=== PATIENT | female | born 1955 | race Caucasian/White ===

== ENCOUNTER 2017-12-23 14:12 | Inpatient (IN) | payer BC ==
[2017-12-23 16:25] LABS: Hematocrit 34 % (35-47); Hemoglobin 11.2 g/dl (12.0-16.0); Mean Corpuscular HGB Conc 33 g/dl (31-36); Mean Corpuscular Hemoglobin 29 pg (27-31); Mean Corpuscular Volume 87 fL (80-97); Platelet Count 573 10^3/ul (150-450); Red Cell Distribution Width 15 % (10.5-15); White Blood Count 12.7 10^3/ul (3.5-10.8)
[2017-12-23 16:42] LABS: EGFR Non-African American 77.8 (>60)
[2017-12-23] MEDS ORDERED: Ondansetron INJ* 2 MG/ML VIAL IV ONE (16:49)
[2017-12-23] MEDS ORDERED: Morphine INJ* 2 MG/ML 1 ML CARPUJECT IV ONE (16:49)
[2017-12-23] MEDS ORDERED: NS 0.9% 1000 ML* 1,000 ML IV ONE (16:50)
[2017-12-23] MEDS ORDERED: Ondansetron ODT TAB* 4 MG ONE (16:53)
[2017-12-23] MEDS ORDERED: Morphine VIAL* 4 MG/ML VIAL (1 ml vial) IV ONE ×2 (16:53→16:56)
[2017-12-23] MEDS ORDERED: Ondansetron ODT TAB* 4 MG PO ONE (16:56)
[2017-12-23] MEDS ORDERED: NS 0.9% 1000 ML* 1,000 ML IV SCH (17:00)
[2017-12-23] MEDS ORDERED: methylPREDNISolone SOD 40 MG* 1 ML VIAL IV ONE (17:01)
--- NOTE | 2017-12-23 17:28 | ED ---
Juany Salazar Simon, scribed for Mone Foley MD on 12/23/17 at 1718 . Abdominal Pain/Female - HPI Summary HPI Summary: This patient is a 62 year old F presenting to [facility] accompanied by with PMH ulceratvie colitis. Pt reports a chief complaint of Left sided abdominal pain starting in July 2017, but now worse, at 10/10 severity as of 3 weeks ago and continuing to worsen. Pt endorses insomnia due to frequent BMs - hourly and blood, and diarrhea. Pt denies fever, chills, and emesis. Pt states approx 6 weeks ago wa started on prednisone which she took as a taper. Pt states then started Humira and was nearly through the initial 6 doses when she developed increased abd pain and lethargy, so she stopped taking it. Pt states her GI specialist (currently through [facility]) as well as her PCP want to start her on Remicade - her insurance will not cover so three is a plan for another agent. Pt states her primary care provider wanted to have the pt admissted at [facility] but pt did not want to travel that far. Instead, pt was directed to [facility] ED - pt is aware there is no GI specialist on today. Pt states she was sent to the ED to get hydrated and steroids. and start on immunosuppressant. She claims I can t do this anymore, and when asked what symptoms are bothering her she said it s everything. She last took nausea medication and imodium last night. No analgesia taken today. She described her last BM as blood and brown 1 hour ago , and endorses having 1 every hour, She endorses last being on steroids 1 month ago. Pt denies fevers or chills. Pt states her last sigmoidoscopy was in September and consistent with UC. Pt has not had bowel surgery. Pt's medications reviewed this visit. - History of Current Complaint Chief Complaint: EDAbdPain Stated Complaint: ABD PAIN-SENT FROM [facility] Time Seen by Provider: 12/23/17 15:57 Hx Obtained From: Patient Onset/Duration: Lasting Weeks, Still Present Timing: Constant Severity Initially: Moderate Severity Currently: Severe Pain Intensity: 10 Pain Scale Used: 0-10 Numeric Location: Discrete At: LLQ Alleviating Factor(s): Medications - imodium, anti-nausea meds Associated Signs and Symptoms: Positive: Blood in Stool, Nausea, Diarrhea. Negative: Vomiting Allergies/Adverse Reactions: Allergies Allergy/AdvReac Type Severity Reaction Status Date / Time No Known Allergies Allergy Verified 12/23/17 14:27 Home Medications: Home Medications Adalimumab (NF) [Humira Pen (NF)] 40 mg SUBCUT .EVERY TWO WEEKS 12/23/17 [ History Confirmed 12/23/17] Amitriptyline TAB* [Elavil TAB*] 100 mg PO BEDTIME 12/23/17 [History Confirmed 12/23/17] Ammonium Lactate [Amlactin] 12 % EX BID 12/23/17 [History Confirmed 12/23/17] Ascorbic Acid TAB* [Vitamin C TAB*] 1,000 mg PO DAILY 12/23/17 [History Confirmed 12/23/17] Atorvastatin* [Lipitor*] 20 mg PO DAILY 12/23/17 [History Confirmed 12/23/17] Biotin 1,000 mcg PO DAILY 12/23/17 [History Confirmed 12/23/17] Calcium Carbonate TAB* 600 mg PO DAILY 12/23/17 [History Confirmed 12/23/17] Ciclopirox [Ciclopirox Nail Lacquer] 8 % EX DAILY 12/23/17 [History Confirmed ] Efinaconazole [Jublia] 10 % EX DAILY 12/23/17 [History Confirmed 12/23/17] Ferrous Gluconate TAB* [Fergon TAB*] 325 mg PO DAILY 12/23/17 [History Confirmed 12/23/17] Gabapentin CAP(*) [Neurontin 300 CAP(*)] 300 mg PO BEDTIME 12/23/17 [History Confirmed 12/23/17] Glimepiride (NF) 2 mg PO BID 12/23/17 [History Confirmed 12/23/17] Hydrocortisone 2.5% CREAM(NF) 1 applic TOPICAL BID 12/23/17 [History Confirmed 12/23/17] Levothyroxine TAB* [Synthroid TAB*] 75 mcg PO DAILY 12/23/17 [History Confirmed 12/23/17] Mesalamine DR CAP* [Mesalamine DR CAP* (formerly ASACOL TAB)*] 1.2 gm PO QID [History Confirmed 12/23/17] Multivitamins/Minerals TAB* [Theragran/minerals TAB*] 1 tab PO DAILY 12/23/17 [ History Confirmed 12/23/17] Nortriptyline CAP* [Pamelor CAP*] 50 mg PO BEDTIME 12/23/17 [History Confirmed 12/23/17] [place]-3 Fatty Acids (Nf) [Fish Oil (NF)] 1,000 mg PO DAILY 12/23/17 [History Confirmed 12/23/17] Omeprazole CAP* [Prilosec CAP* 20 MG] 20 mg PO DAILY 12/23/17 [History Confirmed 12/23/17] Ondansetron TAB* [Zofran 4 MG Tab*] 4 mg PO Q8H PRN 12/23/17 [History Confirmed 12/23/17] Pregabalin CAP(*) [Lyrica CAP(*)] 200 mg PO BID MDD 2 capsules 12/23/17 [ History Confirmed 12/23/17] RiFAXimin* [Xifaxan*] 550 mg PO BID 12/23/17 [History Confirmed 12/23/17] Saccharomyces Boulardii [Probiotic] 500 mg PO DAILY 12/23/17 [History Confirmed 12/23/17] Triamcinolone 0.1% CREAM(NF) [Kenalog 0.1% Cream (NF)] 1 applic TOPICAL BID [History Confirmed 12/23/17] Vitamin E CAP* 400 unit PO DAILY 12/23/17 [History Confirmed 12/23/17] Zinc 50 mg PO DAILY 12/23/17 [History Confirmed 12/23/17] Zolpidem TAB* [Ambien TAB*] 10 mg PO BEDTIME PRN MDD 10mg 12/23/17 [History Confirmed 12/23/17] PMH/Surg Hx/FS Hx/Imm Hx Previously Healthy: Yes Endocrine/Hematology History: Denies: Hx Diabetes Cardiovascular History: Denies: Hx Hypertension, Hx Pacemaker/ICD GI History: Reports: Other GI Disorders - ulcerative colitis History: Denies: Hx Renal Disease Sensory History: Denies: Hx Legally Blind, Hx Deafness, Hx Hearing Aid Opthamlomology History: Denies: Hx Legally Blind EENT History: Denies: Hx Deafness Psychiatric History: Denies: Hx Panic Disorder - Cancer History Hx Chemotherapy: No Hx Radiation Therapy: No - Surgical History Surgery Procedure, Year, and Place: CHOLECYSTECTOMY 2006 Infectious Disease History: No Infectious Disease History: Denies: Traveled Outside the [place] in Last 30 Days - Family History Known Family History: Positive: Cardiac Disease - Social History Occupation: Unemployed Lives: With Family Alcohol Use: Rare Substance Use Type: Reports: None Smoking Status (MU): Never Smoked Tobacco Review of Systems Positive: Fatigue, Other - insomnia. Negative: Fever, Chills Positive: Abdominal Pain - LLQ, Diarrhea, Nausea, Other - Hematochezia. Negative: Vomiting All Other Systems Reviewed And Are Negative: Yes Physical Exam - Summary Physical Exam Summary: Vital Signs Reviewed: Yes A+Ox3, mild discomfort Eyes: Conjunctiva Clear, JOSE DE JESUS. EOM intact and full ENT: Hearing grossly normal TM x 2 clear, mmoist, uvula midline, no exudate, no erythema Neck: Positive: Supple Respiratory: Positive: No respiratory distress, No accessory muscle use + CTA throughout no w/r Cardiovascular: RRR nl s1, s2 no m/r CBT <2 abd soft + BS + TTP left upper and lower abdomen no guarding, no rebound soft Musculoskeletal Exam: SHAH x 4 without difficulty Strength Intact, ROM Intact Neurological: Positive: Alert, + sensation throughout Psychological: Positive: Normal Response To Family Skin: Positive: no rash, no ecchymosis Triage Information Reviewed: Yes Vital Signs On Initial Exam: Initial Vitals Temp Pulse Resp BP Pulse Ox 98 F 92 17 147/84 98 12/23/17 14:23 12/23/17 14:23 12/23/17 14:23 12/23/17 14:23 12/23/17 14:23 Vital Signs Reviewed: Yes Diagnostics - Vital Signs Vital Signs Temp Pulse Resp BP Pulse Ox 12/23/17 16:01 103 171/110 99 12/23/17 16:00 93 79 12/23/17 14:23 98 F 92 17 147/84 98 - Laboratory Lab Results: Lab Results 12/23/17 12/23/17 Range/Units 16:17 16:17 WBC 12.7 H (3.5-10.8) 10^3/ul RBC 3.90 L (4.00-5.40) 10^6/ul Hgb 11.2 L (12.0-16.0) g/dl Hct 34 L (35-47) % MCV 87 (80-97) fL MCH 29 (27-31) pg MCHC 33 (31-36) g/dl RDW 15 (10.5-15) % Plt Count 573 H (150-450) 10^3/ul MPV 7.0 L (7.4-10.4) um3 Neut % (Auto) Pending Lymph % (Auto) Pending [place] % (Auto) Pending Eos % (Auto) Pending Baso % (Auto) Pending Absolute Neuts (auto) Pending Absolute Lymphs (auto) Pending Absolute Monos (auto) Pending Absolute Eos (auto) Pending Absolute Basos (auto) Pending Absolute Nucleated RBC Pending Nucleated RBC % Pending ESR Pending Sodium 129 L (135-145) mmol/L Potassium 3.5 (3.5-5.0) mmol/L Chloride 93 L (101-111) mmol/L Carbon Dioxide 27 (22-32) mmol/L Anion Gap 9 (2-11) mmol/L BUN 7 (6-24) mg/dL Creatinine 0.75 (0.51-0.95) mg/dL Est GFR ( Amer) 94.1 (>60) Est GFR (Non-Af Amer) 77.8 (>60) BUN/Creatinine Ratio 9.3 (8-20) Glucose 170 H (70-100) mg/dL Calcium 8.5 L (8.6-10.3) mg/dL Magnesium 1.7 L (1.9-2.7) mg/dL Total Bilirubin 0.40 (0.2-1.0) mg/dL AST 13 (13-39) U/L ALT 11 (7-52) U/L Alkaline Phosphatase 100 (34-104) U/L C-Reactive Protein 27.69 H (<8.01) mg/L Total Protein 7.0 (6.4-8.9) g/dL Albumin 2.9 L (3.2-5.2) g/dL Globulin 4.1 H (2-4) g/dL Albumin/Globulin Ratio 0.7 L (1-3) Lipase < 10 L (11.0-82.0) U/L Result Diagrams: 12/23/17 16:17 12/23/17 16:17 Lab Statement: Any lab studies that have been ordered have been reviewed, and results considered in the medical decision making process. Abdominal Pain Fem Course/Dx - Course Course Of Treatment: Patient with a history of ulcerative colitis. Patient is previously seen by [facility]. Patient states her primary care energyless she was currently followed by [facility]. Patient states the last 4-6 week she's had progressive active flare of her typical colitis. Patient states her prednisone taper and then got several doses of Humira. Patient states she did not tolerate that well and so the plan is for her to get started on Remicade or something similar. Patient states pain has become progressive and she feels weak and fatigued and she is not basically to bowel movements. Patient was advised by her primary doctor to go to our with GI could care for her. Patient states she did not want to travel that far so she came here. Patient with GI services on this evening. After discussion with patient and the hospitalist, we'll admit to the medicine service for IV fluids and Solu-Medrol. Hopefully GI will be able to consult on the patient tomorrow. Patient advised that other infusions may not be initiated a hospital but if, GI agrees, perhaps she could be set up with outpatient infusion center. Patient understand this is not a guarantee however are appreciative of plan to admit for IV fluids and steroids. Patient will be given antiemetic as well as in the analgesia while here in the emergency department. Patient's vital signs are stable and her exam is not consistent with acute abdomen so will hold on imaging at this time. - Diagnoses Provider Diagnoses: Ulcerative colitis, Abdominal pain, Hyponatremia - Provider Notifications Discussed Care Of Patient With: Luann Preston - Solumedrol every 8 hours Time Discussed With Above Provider: 17:00 Instructed by Provider To: Admit As Observation Discharge - Sign-Out/Discharge Documenting (check all that apply): Discharge/Admit/Transfer - Discharge Plan Condition: Stable Disposition: ADMITTED TO [facility] Referrals: Shital Harper MD [Primary Care Provider] - - Billing Disposition and Condition Condition: STABLE Disposition: Admitted to [facility] The documentation as recorded by the Juany buck Simon accurately reflects the service I personally performed and the decisions made by me, Mone Foley MD.
[2017-12-23 17:40] LABS: Urine Appearance Clear; Urine Blood Negative (Negative); Urine Color Yellow; Urine Ketones 1+ (Negative); Urine Protein Negative (Negative); Urine Specific Gravity 1.008 (1.010-1.030); Urine Urobilinogen Negative (Negative)
[2017-12-23] MEDS ORDERED: Ondansetron INJ* 2 MG/ML VIAL IV PRN (18:00)
[2017-12-23] MEDS ORDERED: Al Hydrox/Mg Hydrox/Simet LIQ* 30 ML UDC PO PRN (18:00)
[2017-12-23 18:12] LABS: ABS Basophils 0.2 10^3/ul (0-0.2); ABS Eosinophils 1.6 10^3/ul (0-0.6); ABS Lymphocytes 2.6 10^3/ul (1.0-4.8); ABS Monocytes 1.6 10^3/ul (0-0.8); ABS Neutrophils 6.8 10^3/ul (1.5-7.7); ABS Nucleated RBC 0 10^3/ul; Eosinophil % 12.4 % (0-6); Lymphocyte % 20.2 % (25-47); Nucleated Red Blood Cells % 0
[2017-12-23] MEDS: NS 0.9% 1000 ML* 1,000 ML IV SCH (21:21)
[2017-12-23] MEDS: methylPREDNISolone SOD 40 MG* 1 ML VIAL IV SCH (21:27)
[2017-12-23] MEDS: Morphine VIAL* 4 MG/ML VIAL (1 ml vial) IV PRN (21:27)
[2017-12-23] MEDS: Amitriptyline TAB* 100 MG PO SCH (21:33)
[2017-12-23] MEDS: Pregabalin CAP(*) 100 MG PO SCH (21:33)
[2017-12-23] MEDS: RiFAXimin* 550 MG TAB PO SCH (21:33)
[2017-12-23] MEDS: Gabapentin CAP(*) 300 MG PO SCH (21:33)
[2017-12-23] MEDS: Nortriptyline CAP* 25 MG PO SCH (21:34)
[2017-12-23] MEDS: Hydrocortisone 1% CREAM* 30 GM TUBE TOPICAL SCH (21:34)
[2017-12-23] MEDS: Heparin VIAL(*) 5000 UNITS/ML VIAL (FIVE THOUSAND) SUBCUT SCH (21:59)
--- NOTE | 2017-12-24 00:20 | HP ---
ADMISSION HISTORY AND PHYSICAL: DATE OF ADMISSION: 12/23/17 PATIENT OF: Luann Preston DO * (DICTATED BY RAYMUNDO ECHEVARRIA) PRIMARY CARE PHYSICIAN: [facility]. CHIEF COMPLAINT: Left lower quadrant abdominal pain and diarrhea. HISTORY OF PRESENT ILLNESS: Mrs. Ramirez is a 62-year-old female who has past medical history significant for ulcerative colitis that was diagnosed approximately 15 years ago, for which she has had flare-ups on and off since last July. The patient presented to the emergency room, accompanied by her , reports a chief complaint of left-sided abdominal pain that has been going on and off since July of 2017, but has gotten progressively worse over the past few days, rated it as 10/10 in severity for the past 3 weeks or so and it continued to worsen. She notes associated diarrhea and occasional bloody stools and passing mucus as well consistent with her prior symptoms of ulcerative colitis. The patient has been on mesalamine treatment as well as Humira injection and has been seen by a GI doctor at [facility] for the past year or so. She has been previously a patient of Dr. Nazario and after he left [facility], she was forced to go to a GI doctor at [facility]; however, she has not been very happy and satisfied with her care there and would like to return to [facility] for her GI consultations and needs given her chronic issues with ulcerative colitis. The patient notes that she started Humira for the past 3 months or so, took about 6 doses on biweekly basis; however, she continued to develop increased abdominal pain, frequent diarrhea rated it as 1 loose bowel movement around hour and she was told by her primary care physician that he wanted her to start on Remicade. The patient notes that she had some insurance issues to cover Remicade as well as Humira, for which she decided to leave [facility] and return to [facility] for evaluation. The patient states that she was sent to the emergency room for IV fluid hydration as well as steroid and she was quite upset upon presentation stating that she cannot tolerate her chronic disease anymore and would like to do something different to make her feel better. She reports associated nausea, but denies any vomiting. She took some Imodium last night with very minimal relief. She described her bowel movement as being bloody and brown, again 1 bowel movement every hour and last time she tried steroid medication was about a month ago. She had multiple colonoscopies, most recently in September she had a flex sigmoidoscopy that revealed findings consistent with ulcerative colitis. She has never had any bowel surgeries related to her inflammatory bowel disease. At the time of admission, she appears to be more comfortable and cooperative during the history taking and examination. She continued to have some mild abdominal pain now after she took morphine and she feels better after 2 L of IV fluid hydration during her ED stay. We were asked to see the patient for evaluation and to consider admission for IV fluid hydration, pain control and to obtain GI consultation in the morning regarding her longstanding issues with ulcerative colitis. PAST MEDICAL HISTORY: Significant for ulcerative colitis that was diagnosed approximately 15 years ago. She also has history of hyperlipidemia, glucose intolerance, hypothyroidism and anxiety and depression. PAST SURGICAL HISTORY: She had cholecystectomy back in 2006. CURRENT MEDICATIONS: She has multiple medications at home includin. Humira 40 mg subcutaneously every 2 weeks. 2. Amitriptyline 100 mg p.o. q.h.s. 3. AmLactin lotion apply to dry skin. 4. Vitamin C 1000 mg p.o. daily. 5. Lipitor 20 mg p.o. daily. 6. Biotin 1000 mcg p.o. daily. 7. Jublia solution use as prescribed. 8. Glimepiride 2 mg p.o. b.i.d. 9. Neurontin 300 mg p.o. q.h.s. 10. Ferrous gluconate 325 mg p.o. daily. 11. Levothyroxine 75 mcg p.o. daily. 12. Mesalamine 1.2 g p.o. q.i.d. 13. Multivitamin with mineral 1 tablet p.o. daily. 14. Nortriptyline 50 mg p.o. q.h.s. 15. [place] fatty acid supplement 1000 mg p.o. daily. 16. Prilosec 20 mg p.o. daily. 17. Zofran 4 mg p.o. q.8 hours p.r.n. for nausea. 18. Lyrica 200 mg p.o. b.i.d. 19. Xifaxan 550 mg p.o. b.i.d. 20. Probiotic supplement 500 mg p.o. daily. 21. Ambien 10 mg p.o. q.h.s. as needed for insomnia. ALLERGIES: She has no known drug allergies. FAMILY HISTORY: Reports family history for cardiac disease, but denies any family history of inflammatory bowel disease or colorectal malignancies. SOCIAL HISTORY: The patient is retired. She lives with her , who is the healthcare proxy carrier. She is a nonsmoker, who rarely consumes alcohol, and caffeine intake is minimal. REVIEW OF SYSTEMS: See HPI. Otherwise, 14 points review of systems was reviewed and essentially negative. PHYSICAL EXAMINATION GENERAL: She is a pleasant, upper middle-aged female, appears comfortable and in no acute distress or discomfort at the time of admission. VITAL SIGNS: Revealed blood pressure of 173/83, pulse of 88, temperature of 98 degrees, respirations of 15 and O2 sats of 93% on room air. HEENT: Head is normocephalic, atraumatic. Sclerae anicteric. PERRLA. EOMs intact. Oropharynx is dry. NECK: Supple. Trachea midline. No cervical adenopathy or thyromegaly. LUNGS: Clear to auscultation bilaterally. HEART: Regular rate and rhythm. Normal S1 and S2 without rubs, murmurs or gallops. BACK: With normal curvature. No CVA tenderness. BREASTS: Exam deferred at this time. ABDOMEN: Soft and nondistended. There is moderate left lower quadrant tenderness on palpation with some guarding, but no rigidity, rebound tenderness or tympany. There are no hernias, masses or hepatosplenomegaly. EXTREMITIES: Without cyanosis, clubbing or edema. NEUROLOGIC: Grossly intact. RECTAL: Exam deferred at this time. LABORATORY WORKUP: CBC with white count of 12,700, hemoglobin 11.2, hematocrit of 34 and platelets of 573. ESR elevated with value of 72. Chemical panel with sodium of 129, potassium 3.5, chloride 93, BUN of 7, creatinine 0.75, glucose 170, magnesium of 1.7. LFTs essentially within normal limits. Albumin 2.9 and CRP 27. Urinalysis essentially normal. IMPRESSION: A 62-year-old female with history of longstanding ulcerative colitis, who presented to the emergency room with worsening abdominal pain, dehydration and flare-ups of her inflammatory bowel disease, who will be admitted for IV hydration, steroid use as well as obtaining a GI consult for further recommendation regarding her ulcerative colitis management. ASSESSMENT AND PLAN: 1. Flare-ups of ulcerative colitis. The patient will be on clear liquid diet for the time being. We will give her frequent boluses of IV fluid. She had received 2 L of normal saline in the ED and I will give her another liter and then maintain her at 125 mL per hour from now on and encourage p.o. intake. She appears to be hemodynamically stable. Her abdominal pain seems to be better controlled now using morphine as needed. We will continue covering her with Zofran as needed for nausea. We will also initiate steroid using Solu- Medrol 40 mg q.8 hours. This regimen has been started already in the ED. We will hold off her Humira injection for now awaiting GI consultation for possible discussion about Remicade treatment if deemed necessary versus other management. We will also continue her salicylate orally and her other medication from home. 2. Hypertension. The patient is hypertensive upon admission, likely related to stress reaction as well as her abdominal pain. 3. Hyperlipidemia. We will continue her Lipitor. 4. Hypothyroidism. We will continue her Synthroid as prescribed. 5. DVT prophylaxis. The patient is a high risk and will be covered with subcu heparin. 6. Code status. She is a full code and her is healthcare proxy. 7. Disposition. Admission to medical floor for IV hydration and IV Solu-Medrol , awaiting GI consultation for ulcerative colitis. TIME SPENT: Approximately 60 minutes spent admitting this patient with more than 50% spent [id number] on history taking and performing physical exam. I have discussed the case with my attending, Dr. Preston, who agreed to plans, and we will follow her up accordingly. RAYMUNDO ECHEVARRIA [id number]/[facility] #: [id number] MELLISA
[2017-12-24] MEDS: methylPREDNISolone SOD 40 MG* 1 ML VIAL IV SCH ×3 (02:42→17:56)
[2017-12-24] MEDS: Heparin VIAL(*) 5000 UNITS/ML VIAL (FIVE THOUSAND) SUBCUT SCH ×2 (05:56→12:13)
[2017-12-24] MEDS: Levothyroxine TAB* 75 MCG TAB PO SCH (05:56)
[2017-12-24] MEDS: NS 0.9% 1000 ML* 1,000 ML IV SCH ×2 (06:00→15:17)
[2017-12-24 07:02] LABS: ABS Basophils 0 10^3/ul (0-0.2); ABS Eosinophils 0 10^3/ul (0-0.6); ABS Lymphocytes 1.3 10^3/ul (1.0-4.8); ABS Monocytes 0.4 10^3/ul (0-0.8); ABS Neutrophils 7.6 10^3/ul (1.5-7.7); ABS Nucleated RBC 0 10^3/ul; Eosinophil % 0 % (0-6); Hematocrit 31 % (35-47); Hemoglobin 10.2 g/dl (12.0-16.0); Lymphocyte % 13.7 % (25-47); Mean Corpuscular HGB Conc 34 g/dl (31-36); Mean Corpuscular Hemoglobin 29 pg (27-31); Mean Corpuscular Volume 87 fL (80-97); Mean Platelet Volume 7.2 um3 (7.4-10.4); Nucleated Red Blood Cells % 0; Platelet Count 488 10^3/ul (150-450); Red Blood Count 3.49 10^6/ul (4.00-5.40); Red Cell Distribution Width 15 % (10.5-15); White Blood Count 9.3 10^3/ul (3.5-10.8)
[2017-12-24 07:20] LABS: EGFR Non-African American 102.6 (>60)
[2017-12-24] MEDS: Ascorbic Acid TAB* 500 MG PO SCH (08:22)
[2017-12-24] MEDS: Pregabalin CAP(*) 100 MG PO SCH ×2 (08:22→21:34)
[2017-12-24] MEDS: Atorvastatin* 20 MG TAB PO SCH (08:22)
[2017-12-24] MEDS: Omeprazole CAP* 20 MG PO SCH (08:22)
[2017-12-24] MEDS: Hydrocortisone 1% CREAM* 30 GM TUBE TOPICAL SCH ×2 (08:22→21:36)
[2017-12-24] MEDS: Ferrous Gluconate TAB* 324 MG TAB PO SCH (08:22)
[2017-12-24] MEDS: RiFAXimin* 550 MG TAB PO SCH ×2 (08:23→21:34)
[2017-12-24] MEDS: Multivitamins/Minerals TAB PO SCH (08:23)
[2017-12-24] MEDS ORDERED: Dextrose 50% Syringe 50 ML* 25 GM/50 ML SYRINGE IV PUSH PRN (14:58)
--- NOTE | 2017-12-24 15:06 | PN ---
Subjective Date of Service: 12/24/17 Interval History: Patient seen and examined. OOB to chair, at bedside. States she is still having multiple episodes of diarrhea and abdominal pain. Diarrhea is bloody, pain is crampy and primarily in the LLQ. Denies SOB, no chest pain, no fevers or chills, no n/v. Objective Active Medications: Acetaminophen (Tylenol Tab*) 650 mg PO Q4H PRN PRN Reason: FEVER/PAIN Al Hydrox/Mg Hydrox/Simethicone (Maalox Plus*) 30 ml PO Q6H PRN PRN Reason: INDIGESTION Amitriptyline HCl (Elavil Tab*) 100 mg PO BEDTIME [facility] Last Admin: 12/23/17 21:33 Dose: 100 mg Ascorbic Acid (Vitamin C Tab*) 1,000 mg PO DAILY [facility] Last Admin: 12/24/17 08:22 Dose: 1,000 mg Atorvastatin Calcium (Lipitor*) 20 mg PO DAILY [facility] Last Admin: 12/24/17 08:22 Dose: 20 mg Dextrose (D50w Syringe 50 Ml*) 12.5 gm IV PUSH .FOR FS < 60 - SS PRN PRN Reason: FS < 60 Ferrous Gluconate (Fergon Tab*) 325 mg PO DAILY [facility] Last Admin: 12/24/17 08:22 Dose: 324 mg Gabapentin (Neurontin Cap(*)) 300 mg PO BEDTIME [facility] Last Admin: 12/23/17 21:33 Dose: 300 mg Hydrocortisone (Hytone Cream 1%*) 1 applic TOPICAL BID [facility] Last Admin: 12/24/17 08:22 Dose: 1 applic Sodium Chloride (Ns 0.9% 1000 Ml*) 1,000 mls @ 125 mls/hr IV PER RATE [facility] Last Admin: 12/24/17 06:00 Dose: 125 mls/hr Insulin Human Lispro (Humalog*) 0 units SUBCUT ACHS [facility]; Protocol Levothyroxine Sodium (Synthroid Tab*) 75 mcg PO 0600 [facility] Last Admin: 12/24/17 05:56 Dose: 75 mcg Mesalamine (Mesalamine Dr Cap*) 1,200 mg PO QID [facility] Last Admin: 12/24/17 12:12 Dose: 1,200 mg Methylprednisolone Sodium Succinate (Solu-Medrol 40 Mg) 40 mg IV Q8H [facility] Last Admin: 12/24/17 12:12 Dose: 40 mg Morphine Sulfate (Morphine Vial*) 2 mg IV Q1H PRN PRN Reason: PAIN Last Admin: 12/23/17 21:27 Dose: 2 mg Multivitamins/Minerals (Theragran/Minerals Tab*) 1 tab PO DAILY [facility] Last Admin: 12/24/17 08:23 Dose: 1 tab Nortriptyline HCl (Pamelor Cap*) 50 mg PO BEDTIME [facility] Last Admin: 12/23/17 21:34 Dose: 50 mg Omeprazole (Prilosec Cap*) 20 mg PO 0730 [facility] Last Admin: 12/24/17 08:22 Dose: 20 mg Ondansetron HCl (Zofran Inj*) 4 mg IV Q4H PRN PRN Reason: NAUSEA/VOMITING Pregabalin (Lyrica Cap(*)) 200 mg PO BID [facility] Last Admin: 12/24/17 08:22 Dose: 200 mg Rifaximin (Xifaxan*) 550 mg PO BID [facility] Last Admin: 12/24/17 08:23 Dose: 550 mg Zolpidem Tartrate (Ambien Tab*) 10 mg PO BEDTIME PRN PRN Reason: SLEEP Vital Signs - 8 hr 12/24/17 12/24/17 12/24/17 07:24 08:00 08:22 Temperature 97.8 F Pulse Rate 83 Respiratory 16 18 16 Rate Blood Pressure 130/64 (mmHg) O2 Sat by Pulse 91 Oximetry 12/24/17 11:31 Temperature Pulse Rate Respiratory 16 Rate Blood Pressure (mmHg) O2 Sat by Pulse Oximetry Oxygen Devices in Use Now: None Appearance: Alert, NAD Eyes: No Scleral Icterus, PERRLA Ears/Nose/Mouth/Throat: NL Teeth, Lips, Gums, Mucous Membranes Moist Neck: NL Appearance and Movements; NL JVP, Trachea Midline Respiratory: Symmetrical Chest Expansion and Respiratory Effort, Clear to Auscultation Cardiovascular: NL Sounds; No Murmurs; No JVD, RRR, No Edema Abdominal: No Hepatosplenomegaly, - - tender LLQ Extremities: No Edema, No Clubbing, Cyanosis Skin: No Rash or Ulcers Neurological: Alert and Oriented x 3, NL Gait Nutrition: - - CLD Result Diagrams: 12/24/17 06:29 12/24/17 06:29 Additional Lab and Data: Lab Results 12/23/17 12/23/17 Range/Units 16:17 16:17 WBC 12.7 H (3.5-10.8) 10^3/ul RBC 3.90 L (4.00-5.40) 10^6/ul Hgb 11.2 L (12.0-16.0) g/dl Hct 34 L (35-47) % MCV 87 (80-97) fL MCH 29 (27-31) pg MCHC 33 (31-36) g/dl RDW 15 (10.5-15) % Plt Count 573 H (150-450) 10^3/ul MPV 7.0 L (7.4-10.4) um3 Neut % (Auto) Pending Lymph % (Auto) Pending Sargent % (Auto) Pending Eos % (Auto) Pending Baso % (Auto) Pending Absolute Neuts (auto) Pending Absolute Lymphs (auto) Pending Absolute Monos (auto) Pending Absolute Eos (auto) Pending Absolute Basos (auto) Pending Absolute Nucleated RBC Pending Nucleated RBC % Pending ESR Pending Sodium 129 L (135-145) mmol/L Potassium 3.5 (3.5-5.0) mmol/L Chloride 93 L (101-111) mmol/L Carbon Dioxide 27 (22-32) mmol/L Anion Gap 9 (2-11) mmol/L BUN 7 (6-24) mg/dL Creatinine 0.75 (0.51-0.95) mg/dL Est GFR ( Amer) 94.1 (>60) Est GFR (Non-Af Amer) 77.8 (>60) BUN/Creatinine Ratio 9.3 (8-20) Glucose 170 H (70-100) mg/dL Calcium 8.5 L (8.6-10.3) mg/dL Magnesium 1.7 L (1.9-2.7) mg/dL Total Bilirubin 0.40 (0.2-1.0) mg/dL AST 13 (13-39) U/L ALT 11 (7-52) U/L Alkaline Phosphatase 100 (34-104) U/L C-Reactive Protein 27.69 H (<8.01) mg/L Total Protein 7.0 (6.4-8.9) g/dL Albumin 2.9 L (3.2-5.2) g/dL Globulin 4.1 H (2-4) g/dL Albumin/Globulin Ratio 0.7 L (1-3) Lipase < 10 L (11.0-82.0) U/L Assess/Plan/Problems-Billing Assessment: this is a 62 year old female patient with known history of UC that has been in a flare for some time, placed on Humira 6 weeks ago with no relief, presents with bloody diarrhea and abdominal pain, hyponatremia, hyperglycemia and thrombocytosis. - Patient Problems (1) Ulcerative colitis with rectal bleeding Code(s): K51.911 - ULCERATIVE COLITIS, UNSPECIFIED WITH RECTAL BLEEDING SNOMED Code(s): 90162875 Comment: - Was on steroid taper until 5 weeks ago when Humira initiated - No relief on humira, symptoms and pain persist - Family questioning if remicade is an option? Will defer to GI recommendations on further treatment - Continue mesalamine and rifaxamin for now and and IV steroids Q8h - CLD - supportive care (2) Hyperglycemia Code(s): R73.9 - HYPERGLYCEMIA, UNSPECIFIED SNOMED Code(s): 53662519 Comment: - Will obtain A1C - Unclear if high sugar is steroid induced vs diabetes - Lispro SS with accuchecks AC and HS while on steroids (3) Hyponatremia Code(s): E87.1 - HYPO-OSMOLALITY AND HYPONATREMIA SNOMED Code(s): 13550411 Comment: - Resolved with NS boluses - Follow lytes (4) Reactive thrombocytosis Code(s): R79.89 - OTHER SPECIFIED ABNORMAL FINDINGS OF BLOOD CHEMISTRY SNOMED Code(s): 848304458 Comment: - In presence of UC flare - follow platelets (5) DVT prophylaxis Code(s): HRX6780 - SNOMED Code(s): 754691328 Comment: - DC heparin 2/2 rectal bleeding - SCDs while in bed - patient ambulatory (6) Full code status Code(s): Z78.9 - OTHER SPECIFIED HEALTH STATUS SNOMED Code(s): 008176769
[2017-12-24] MEDS: Insulin LISPRO* 1 UNITS UNIT SUBCUT SCH ×2 (17:56→21:38)
[2017-12-24] MEDS: Polyethylene Glycol 3350* 17 GM PACKET PO SCH ×3 (19:43→21:33)
[2017-12-24] MEDS: Amitriptyline TAB* 100 MG PO SCH (21:34)
[2017-12-24] MEDS: Nortriptyline CAP* 25 MG PO SCH (21:34)
[2017-12-24] MEDS: Gabapentin CAP(*) 300 MG PO SCH (21:36)
[2017-12-25] MEDS: Zolpidem TAB* 10 MG PO PRN ×2 (00:41→23:36)
[2017-12-25] MEDS: Acetaminophen TAB* 325 MG PO PRN ×2 (00:41→23:36)
[2017-12-25] MEDS: NS 0.9% 1000 ML* 1,000 ML IV SCH ×3 (00:42→23:52)
[2017-12-25] MEDS: methylPREDNISolone SOD 40 MG* 1 ML VIAL IV SCH ×3 (03:14→17:29)
--- NOTE | 2017-12-25 03:20 | CONS ---
GASTROENTEROLOGY CONSULT: DATE: 12/24/17 REFERRING PHYSICIAN: Luann Preston HISTORY OF PRESENT ILLNESS: This 62-year-old woman, treated for left-sided ulcerative colitis since around 1999, for many years on 6-MP and Colazal, has had a flare of disease since July 2017 and most recently had been on a trial of Humira with last dose due 12/22/17 (held by herself as her previous doses did not seem to help). She was offered hospitalization at [facility] but she and her decided to come to the ER for a second opinion and thought Rem[employer] would be started right away. She initially was treated by Dr Zayas and then transitioned to Dr Nazario, who last did a colonoscopy on 12/04/2016 due to crampy pain and loose stools. Inactive disease was seen and biopsy said same with no dysplasia. Dr Nazario commented that the symptoms seemed out of proportion to the pseudopolyps and patchy scarring without any true activity which was the same as 06/26/14. At that time, she also had Dr Temple as her supervising physician. At his last f/ u OV with Dr Nazario she was on 6MP but voiced intention to taper off it. With this history she confirms that she tapered off the meds "as I didn't really seem to need them" - this was said several times though neither of them can give the timing. However says that when she gets bottles she takes them to completion and throws them out. Her pharmacy printout however indicates a refill #[id number] 06/26/17 from [facility] and thus it is not exactly clear what took place. She switched to Dr. Harper and Dr. Salinas sometime in the fall. At this time, she is unable to tell me how decisions were made to taper her off 6-MP and Colazal though Dr Salinas felt she had been off therapy "for some time'. Sometime in July, she began passing blood and having more frequent stools. She had a consult with Dr Salinas in August and then on 09/16/17 a sigmoidoscopy (she has no idea of the interval from consult to procedure), which she said showed a lot of disease and she was put on prednisone 40 mg though they are not sure if it was before or after the sigmoid. She did not think the prednisone did much for her and that was tapered. She was placed on Humira and she thought there was some improvement after the first dose, but then pain and cramping increased. She just felt progressively worse over the last month. There was no vomiting or fever. She had eaten 100% of her clear liquid dinner tonight. PAST MEDICAL HISTORY: 1. Ulcerative colitis - "inactive disease" on 2011, 2013 and 12/04/16 colonoscopies 2. Hyperlipidemia. 3. Hypothyroidism. 4. Anxiety and depression. 5. Unspecified neurologic condition - she has been followed by Dr Daily for a number of years and says he is the prescribing physician for amitriptyline and nortriptyline that she says she is taking concomitantly for a scalp condition (both in the pharmacy printout). Her family members are not able to corroborate that. 6. Cholecystectomy, 2006. 7. Chronic GERD. CURRENT MEDICATIONS: Twenty-one entry list in the hospitalist H and P reviewed. It also includes Neurontin and mesalamine. SOCIAL HISTORY: She is . Her works at the local [employer]. Her son works at a restaurant ([employer]). REVIEW OF SYSTEMS: No history of MD, arrhythmia, syncope, atrial fibrillation, TIA, CVA, jaundice, renal stones, psoriasis, or inflammatory arthritis. PHYSICAL EXAM: She is a very anxious, moderately overweight middle-aged woman, in no overt distress physically. Skin shows some actinic change. She has no icterus. She has no adenopathy. Her lungs are clear and heart sounds are regular. The abdomen is mildly rounded with bowel sounds present. There is no focal tenderness or guarding. Perianal inspection is normal and rectal reveals some granular palpable abnormality in the rectum. There is brown liquid stool produced. LABORATORY DATA: CBC shows hemoglobin 11.2, hematocrit 34, white count 12.7, platelets 573, sed rate 72. HOSPITAL TREATMENT: On admission, it appeared that she was dehydrated and she was given a fair amount of fluid. She was started on intravenous steroids. She has been fairly comfortable and has had just 1 loose stool today. IMPRESSION AND PLAN: This 62-year-old woman with left sided ulcerative colitis had many years of good control up through summer 2016 with 6MP likely more important than Colazal in my opinion. She tapered off her immunomodulator at some point the latter half of 2016 (most likely) Scarring in the left colon had been without dysplasia on [address] Nazario. This left sided distribution of disease is often more difficult to control. She has had some times when symptoms seemed out of proportion to endoscopic findings so likely she has functional symptom triggers also. Anxiety and atypical neurologic conditions are present and her understanding of her condition and treatment is only fair complicating matters. However she did begin seeing blood and had more frequent stools in July and active disease on a sigmoidoscopy 09/16/17. Transition to Humira has not seemed to help and would be defined as primary non response to it. At the moment, the primary strategy is to continue IV steroids, assess their benefit and attempt to get her old records and have her do a limited preparation to try to get a colonoscopy (limited?) done. A change to Entyvio ( preferred) is certainly a consideration though if she gets an excellent response to IV steroids resumption of 6 MP could be considered. A different anti TNF might work but with primary non response would be expected to be less effective than Entyvio. [id number]/[facility] #: [id number] MELLISA
[2017-12-25] MEDS: Levothyroxine TAB* 75 MCG TAB PO SCH (06:58)
[2017-12-25] MEDS: Polyethylene Glycol 3350* 17 GM PACKET PO SCH ×2 (06:58→10:09)
--- NOTE | 2017-12-25 08:24 | RAD ---
Indication: Fall, head injury. CT of the brain was performed without IV contrast. Ventricular structures are midline. No midline shift is noted. The extra-axial spaces are unremarkable. There is no evidence of intracranial mass or hemorrhage. No other high or low density lesions are identified. Mastoid air cells and paranasal sinuses are otherwise unremarkable. IMPRESSION: No intracranial mass or hemorrhage is noted.
[2017-12-25] MEDS: Pregabalin CAP(*) 100 MG PO SCH ×2 (09:38→21:42)
[2017-12-25] MEDS: Ascorbic Acid TAB* 500 MG PO SCH (09:38)
[2017-12-25] MEDS: Multivitamins/Minerals TAB PO SCH (09:41)
[2017-12-25] MEDS: RiFAXimin* 550 MG TAB PO SCH ×2 (09:41→21:44)
[2017-12-25] MEDS: Atorvastatin* 20 MG TAB PO SCH (09:41)
[2017-12-25] MEDS: Ferrous Gluconate TAB* 324 MG TAB PO SCH (09:41)
[2017-12-25] MEDS: Omeprazole CAP* 20 MG PO SCH (09:41)
[2017-12-25] MEDS: Insulin LISPRO* 1 UNITS UNIT SUBCUT SCH ×4 (09:44→21:47)
[2017-12-25] MEDS: Hydrocortisone 1% CREAM* 30 GM TUBE TOPICAL SCH ×2 (09:45→21:07)
--- NOTE | 2017-12-25 11:34 | PN ---
Subjective Date of Service: 12/25/17 Interval History: Patient seen and examined. Had a fall in the bathroom overnight when patient was rushing to the toilet. She did strike her head, but no loss of consciousness. CT scan obtained, no fracture or bleed. Less abdominal pain today. Still with frequent stools and now on miralax per GI to prep for scope this afternoon (1500). Patient denies SOB, no chest pain, no n /v. No fever or chills. Objective Active Medications: Acetaminophen (Tylenol Tab*) 650 mg PO Q4H PRN PRN Reason: FEVER/PAIN Last Admin: 12/25/17 00:41 Dose: 650 mg Al Hydrox/Mg Hydrox/Simethicone (Maalox Plus*) 30 ml PO Q6H PRN PRN Reason: INDIGESTION Amitriptyline HCl (Elavil Tab*) 100 mg PO BEDTIME [facility] Last Admin: 12/24/17 21:34 Dose: 100 mg Ascorbic Acid (Vitamin C Tab*) 1,000 mg PO DAILY [facility] Last Admin: 12/25/17 09:38 Dose: 1,000 mg Atorvastatin Calcium (Lipitor*) 20 mg PO DAILY [facility] Last Admin: 12/25/17 09:41 Dose: 20 mg Dextrose (D50w Syringe 50 Ml*) 12.5 gm IV PUSH .FOR FS < 60 - SS PRN PRN Reason: FS < 60 Ferrous Gluconate (Fergon Tab*) 325 mg PO DAILY [facility] Last Admin: 12/25/17 09:41 Dose: 324 mg Gabapentin (Neurontin Cap(*)) 300 mg PO BEDTIME [facility] Last Admin: 12/24/17 21:36 Dose: 300 mg Hydrocortisone (Hytone Cream 1%*) 1 applic TOPICAL BID [facility] Last Admin: 12/25/17 09:45 Dose: Not Given Sodium Chloride (Ns 0.9% 1000 Ml*) 1,000 mls @ 125 mls/hr IV PER RATE [facility] Last Admin: 12/25/17 10:09 Dose: 125 mls/hr Insulin Human Lispro (Humalog*) 0 units SUBCUT ACHS [facility]; Protocol Last Admin: 12/25/17 09:44 Dose: 1 units Levothyroxine Sodium (Synthroid Tab*) 75 mcg PO 0600 [facility] Last Admin: 12/25/17 06:58 Dose: 75 mcg Mesalamine (Mesalamine Dr Cap*) 1,200 mg PO QID [facility] Last Admin: 12/25/17 09:38 Dose: 1,200 mg Methylprednisolone Sodium Succinate (Solu-Medrol 40 Mg) 40 mg IV Q8H [facility] Last Admin: 12/25/17 10:09 Dose: 40 mg Morphine Sulfate (Morphine Vial*) 2 mg IV Q1H PRN PRN Reason: PAIN Last Admin: 12/23/17 21:27 Dose: 2 mg Multivitamins/Minerals (Theragran/Minerals Tab*) 1 tab PO DAILY [facility] Last Admin: 12/25/17 09:41 Dose: 1 tab Nortriptyline HCl (Pamelor Cap*) 50 mg PO BEDTIME [facility] Last Admin: 12/24/17 21:34 Dose: 50 mg Omeprazole (Prilosec Cap*) 20 mg PO 0730 [facility] Last Admin: 12/25/17 09:41 Dose: 20 mg Ondansetron HCl (Zofran Inj*) 4 mg IV Q4H PRN PRN Reason: NAUSEA/VOMITING Polyethylene Glycol/Electrolytes (Miralax*) 17 gm PO ONCE ONE Stop: 12/25/17 12:01 Pregabalin (Lyrica Cap(*)) 200 mg PO BID [facility] Last Admin: 12/25/17 09:38 Dose: 200 mg Rifaximin (Xifaxan*) 550 mg PO BID [facility] Last Admin: 12/25/17 09:41 Dose: 550 mg Zolpidem Tartrate (Ambien Tab*) 10 mg PO BEDTIME PRN PRN Reason: SLEEP Last Admin: 12/25/17 00:41 Dose: 10 mg Vital Signs - 8 hr 12/25/17 12/25/17 12/25/17 05:59 06:18 06:30 Temperature 97.4 F 97.6 F Pulse Rate 96 83 73 Respiratory 16 18 16 Rate Blood Pressure 162/87 154/83 (mmHg) O2 Sat by Pulse 92 98 97 Oximetry 12/25/17 12/25/17 12/25/17 06:44 06:55 07:19 Temperature 97.5 F 97.8 F Pulse Rate 85 79 88 Respiratory 16 16 16 Rate Blood Pressure 162/90 153/77 146/79 (mmHg) O2 Sat by Pulse 96 97 99 Oximetry 12/25/17 12/25/1712/25/18 07:58 08:00 09:06 Temperature 97.5 F 98.0 F Pulse Rate 80 93 Respiratory 16 16 16 Rate Blood Pressure 142/68 149/71 (mmHg) O2 Sat by Pulse 91 96 Oximetry 12/25/17 12/25/17 09:38 10:11 Temperature 98.0 F Pulse Rate 97 Respiratory 18 16 Rate Blood Pressure 121/70 (mmHg) O2 Sat by Pulse 100 Oximetry Oxygen Devices in Use Now: None Appearance: Alert, anxious Eyes: No Scleral Icterus, PERRLA Ears/Nose/Mouth/Throat: NL Teeth, Lips, Gums, Mucous Membranes Moist Neck: NL Appearance and Movements; NL JVP, Trachea Midline Respiratory: Symmetrical Chest Expansion and Respiratory Effort, Clear to Auscultation Cardiovascular: NL Sounds; No Murmurs; No JVD, RRR, No Edema Abdominal: - - no rebound or guarding, improved pain LLQ with palpation Skin: No Rash or Ulcers Neurological: Alert and Oriented x 3, NL Gait Nutrition: - - CLD Result Diagrams: 12/24/17 06:29 12/24/17 06:29 Additional Lab and Data: Lab Results 12/23/17 12/23/17 Range/Units 16:17 16:17 WBC 12.7 H (3.5-10.8) 10^3/ul RBC 3.90 L (4.00-5.40) 10^6/ul Hgb 11.2 L (12.0-16.0) g/dl Hct 34 L (35-47) % MCV 87 (80-97) fL MCH 29 (27-31) pg MCHC 33 (31-36) g/dl RDW 15 (10.5-15) % Plt Count 573 H (150-450) 10^3/ul MPV 7.0 L (7.4-10.4) um3 Neut % (Auto) Pending Lymph % (Auto) Pending Travis % (Auto) Pending Eos % (Auto) Pending Baso % (Auto) Pending Absolute Neuts (auto) Pending Absolute Lymphs (auto) Pending Absolute Monos (auto) Pending Absolute Eos (auto) Pending Absolute Basos (auto) Pending Absolute Nucleated RBC Pending Nucleated RBC % Pending ESR Pending Sodium 129 L (135-145) mmol/L Potassium 3.5 (3.5-5.0) mmol/L Chloride 93 L (101-111) mmol/L Carbon Dioxide 27 (22-32) mmol/L Anion Gap 9 (2-11) mmol/L BUN 7 (6-24) mg/dL Creatinine 0.75 (0.51-0.95) mg/dL Est GFR ( Amer) 94.1 (>60) Est GFR (Non-Af Amer) 77.8 (>60) BUN/Creatinine Ratio 9.3 (8-20) Glucose 170 H (70-100) mg/dL Calcium 8.5 L (8.6-10.3) mg/dL Magnesium 1.7 L (1.9-2.7) mg/dL Total Bilirubin 0.40 (0.2-1.0) mg/dL AST 13 (13-39) U/L ALT 11 (7-52) U/L Alkaline Phosphatase 100 (34-104) U/L C-Reactive Protein 27.69 H (<8.01) mg/L Total Protein 7.0 (6.4-8.9) g/dL Albumin 2.9 L (3.2-5.2) g/dL Globulin 4.1 H (2-4) g/dL Albumin/Globulin Ratio 0.7 L (1-3) Lipase < 10 L (11.0-82.0) U/L Microbiology and Other Data: Microbiology 12/23/17 17:11 Urine Culture - Final Urine Diagnostic Imaging: Patient Name: MONICA ESCAMILLA Medical Record#: [id number] Ordering Physician: Rafaela Pitts MD Acct.#: [id number] : 1955 Age: 62 Sex: F Location: [address] [place] [address] MEDICAL Exam Date: 12/25/17 06 ADM Status: ADM IN Order Information: CT BRAIN WO Accession Number: [id number] CPT: 93211 Indication: Fall, head injury. CT of the brain was performed without IV contrast. Ventricular structures are midline. No midline shift is noted. The extra-axial spaces are unremarkable. There is no evidence of intracranial mass or hemorrhage. No other high or low density lesions are identified. Mastoid air cells and paranasal sinuses are otherwise unremarkable. IMPRESSION: No intracranial mass or hemorrhage is noted. <Electronically signed by Rita Moran MD in OV> 12/25/17820 Dictated By: Rita Moran MD Dictated Date/Time: 12/25/17820 Transcribed Date/Time: 12/25/17819 Copy to: Assess/Plan/Problems-Billing Assessment: this is a 62 year old female patient with known history of UC that has been in a flare for some time, placed on Humira 6 weeks ago with no relief, presents with bloody diarrhea and abdominal pain, hyponatremia, hyperglycemia and thrombocytosis. - Patient Problems (1) Ulcerative colitis with rectal bleeding Code(s): K51.911 - ULCERATIVE COLITIS, UNSPECIFIED WITH RECTAL BLEEDING SNOMED Code(s): 95447069 Comment: - GI consult appreciated - Limited prep colonoscopy today - Continue mesalamine and rifaxamin for now and and IV steroids Q8h - CLD - supportive care (2) Hyperglycemia Code(s): R73.9 - HYPERGLYCEMIA, UNSPECIFIED SNOMED Code(s): 96507070 Comment: - Will obtain A1C, unclear if high sugar is steroid induced vs diabetes - Lispro SS with accuchecks AC and HS while on steroids (3) Hyponatremia Code(s): E87.1 - HYPO-OSMOLALITY AND HYPONATREMIA SNOMED Code(s): 52749532 Comment: - Resolved with NS boluses - Follow lytes (4) Reactive thrombocytosis Code(s): R79.89 - OTHER SPECIFIED ABNORMAL FINDINGS OF BLOOD CHEMISTRY SNOMED Code(s): 525952847 Comment: - In presence of UC flare - follow platelets (5) DVT prophylaxis Code(s): GVY1018 - SNOMED Code(s): 543243562 Comment: - DC heparin 2/2 rectal bleeding - SCDs while in bed - patient ambulatory (6) Full code status Code(s): Z78.9 - OTHER SPECIFIED HEALTH STATUS SNOMED Code(s): 026381041 Status and Disposition: Inpatient pending further recs from GI.
[2017-12-25] MEDS ORDERED: Polyethylene Glycol 3350* 17 GM PACKET PO ONE (12:00)
[2017-12-25] MEDS ORDERED: Midazolam* 1 MG/ML 10 ML VIAL (10 MG) ONE (13:51)
[2017-12-25] MEDS ORDERED: fentaNYL* 50 MCG/ML 2 ML VIAL (100 MCG VIAL) ONE (13:51)
[2017-12-25] MEDS: Gabapentin CAP(*) 300 MG PO SCH (21:44)
[2017-12-25] MEDS: Amitriptyline TAB* 100 MG PO SCH (21:44)
[2017-12-25] MEDS: Nortriptyline CAP* 25 MG PO SCH (21:44)
[2017-12-26] MEDS: methylPREDNISolone SOD 40 MG* 1 ML VIAL IV SCH ×3 (03:31→17:57)
[2017-12-26] MEDS: Levothyroxine TAB* 75 MCG TAB PO SCH (05:42)
[2017-12-26 06:31] LABS: ABS Basophils 0 10^3/ul (0-0.2); ABS Eosinophils 0 10^3/ul (0-0.6); ABS Lymphocytes 1.4 10^3/ul (1.0-4.8); ABS Monocytes 0.7 10^3/ul (0-0.8); ABS Nucleated RBC 0 10^3/ul; Eosinophil % 0 % (0-6); Hematocrit 26 % (35-47); Hemoglobin 8.8 g/dl (12.0-16.0); Lymphocyte % 15.5 % (25-47); Mean Corpuscular HGB Conc 34 g/dl (31-36); Mean Corpuscular Hemoglobin 30 pg (27-31); Mean Corpuscular Volume 88 fL (80-97); Mean Platelet Volume 7.1 um3 (7.4-10.4); Nucleated Red Blood Cells % 0.1; Platelet Count 409 10^3/ul (150-450); Red Blood Count 2.96 10^6/ul (4.00-5.40); Red Cell Distribution Width 15 % (10.5-15); White Blood Count 9.2 10^3/ul (3.5-10.8)
[2017-12-26 06:42] LABS: EGFR Non-African American 133.4 (>60)
[2017-12-26] MEDS ORDERED: Potassium Chlor TAB* 20 MEQ TAB.ER PO ONE (07:42)
[2017-12-26] MEDS: KCL 10 MEQ/50 ML IVPREMIX* 10 MEQ/50 ML BAG IV SCH ×2 (08:34→11:42)
[2017-12-26] MEDS: Ferrous Gluconate TAB* 324 MG TAB PO SCH (08:36)
[2017-12-26] MEDS: Atorvastatin* 20 MG TAB PO SCH (08:36)
[2017-12-26] MEDS: RiFAXimin* 550 MG TAB PO SCH ×2 (08:36→21:04)
[2017-12-26] MEDS: Multivitamins/Minerals TAB PO SCH (08:36)
[2017-12-26] MEDS: Omeprazole CAP* 20 MG PO SCH (08:36)
[2017-12-26] MEDS: Pregabalin CAP(*) 100 MG PO SCH ×2 (08:37→21:04)
[2017-12-26] MEDS: Ascorbic Acid TAB* 500 MG PO SCH (08:37)
[2017-12-26] MEDS: Insulin LISPRO* 1 UNITS UNIT SUBCUT SCH ×4 (08:42→21:22)
[2017-12-26] MEDS: NS 0.9% 1000 ML* 1,000 ML IV SCH ×2 (08:48→16:57)
--- NOTE | 2017-12-26 08:49 | PRO ---
DATE: 12/25/17 - ROOM #416 REFERRING PHYSICIANS: Shital Harper; Alicia Salinas, [facility] * PROCEDURE: Colonoscopy to ileocecal level and biopsy of multiple segments. INDICATION: This 62-year-old woman with ulcerative colitis, stretching back at least 15 years initially below the splenic flexure, has been having a flare of symptoms for at least the last 5 or 6 months. Information coming since she was first seen yesterday was that she had been on no treatment for a number months in late 2016 and she had not taken any treatment as the blood passage began in July. She then went on prednisone moderately high dose 09/16/17 and did not appear to respond. She then went on Humira 11/10/17 and there was a transient partial improvement with the first dose and then he second dose she clearly had relapse of severe symptoms. Insurance initially dictated that Humira be the first biologic though her says that even then he had to strenuously advocate for it. Simponi is apparently on their formulary, though not Remicade or Entyvio. A change in insurance was recently done, but apparently that is no less restrictive. Those analyses all took place as an outpatient. Unhappy with the outcome of her treatment, she declined traveling to [facility] on 12/23/17 and presented to the emergency room here in [place]. On presentation, her white count was 12.7, falling to 9.3; hemoglobin 11.2, falling to 10.2. Albumin 2.9 and CRP 27.7. ENDOSCOPIST: Dr. Epstein MEDICATIONS: Midazolam 5, fentanyl 50 FINDINGS: She is a healthy-appearing, middle-aged woman with good color, in no acute distress. Her abdomen is symmetric with normal bowel sounds. She complains of diffuse tenderness to deep palpation. Perianal inspection and rectal showed some granular change on the finger. Initial views show pancolitis, slightly less evident in the distal rectum compared to the proximal rectum and then is maximal with pseudopolyposis in the mid to upper sigmoid. There is a great deal of adherent mucopus throughout the proximal sigmoid, descending, transverse. The severity seems to attenuate around the hepatic flexor and then picks up again a little bit in the proximal right colon. Biopsies are taken during sequential withdrawal. There were no deep ulcers. IMPRESSION: Pancolitis - visually consistent with a severe flare of ulcerative colitis in the whole colon. As she has been prepping over the last 12 to 18 hours, her stool number and thus response to Solu-Medrol is not clearly established Further decisions about initiating biologic are deferred, though it seems likely to be necessary. Addendum: all 5 segments severe colitis no granulomas [id number]/[facility] #: [id number] MTDD
[2017-12-26] MEDS: Hydrocortisone 1% CREAM* 30 GM TUBE TOPICAL SCH ×2 (09:05→21:04)
--- NOTE | 2017-12-26 17:14 | PN ---
Subjective Date of Service: 12/26/17 Interval History: Laura seen and examined. Low potassium today, still having diarrhea. Discussed results of colonoscopy, patient is aware of the severity of the colitis, but she does feel like she's improving. Denies SOB, abdominal pain improved. No fever or chills. Objective Active Medications: Acetaminophen (Tylenol Tab*) 650 mg PO Q4H PRN PRN Reason: FEVER/PAIN Last Admin: 12/25/17 23:36 Dose: 650 mg Al Hydrox/Mg Hydrox/Simethicone (Maalox Plus*) 30 ml PO Q6H PRN PRN Reason: INDIGESTION Amitriptyline HCl (Elavil Tab*) 100 mg PO BEDTIME [facility] Last Admin: 12/25/17 21:44 Dose: 100 mg Ascorbic Acid (Vitamin C Tab*) 1,000 mg PO DAILY [facility] Last Admin: 12/26/17 08:37 Dose: 1,000 mg Atorvastatin Calcium (Lipitor*) 20 mg PO DAILY [facility] Last Admin: 12/26/17 08:36 Dose: 20 mg Dextrose (D50w Syringe 50 Ml*) 12.5 gm IV PUSH .FOR FS < 60 - SS PRN PRN Reason: FS < 60 Ferrous Gluconate (Fergon Tab*) 325 mg PO DAILY [facility] Last Admin: 12/26/17 08:36 Dose: 324 mg Gabapentin (Neurontin Cap(*)) 300 mg PO BEDTIME [facility] Last Admin: 12/25/17 21:44 Dose: 300 mg Hydrocortisone (Hytone Cream 1%*) 1 applic TOPICAL BID [facility] Last Admin: 12/26/17 09:05 Dose: Not Given Sodium Chloride (Ns 0.9% 1000 Ml*) 1,000 mls @ 125 mls/hr IV PER RATE [facility] Last Admin: 12/26/17 16:57 Dose: 125 mls/hr Insulin Human Lispro (Humalog*) 0 units SUBCUT ACHS [facility]; Protocol Last Admin: 12/26/17 12:14 Dose: 4 units Levothyroxine Sodium (Synthroid Tab*) 75 mcg PO 0600 [facility] Last Admin: 12/26/17 05:42 Dose: 75 mcg Mesalamine (Mesalamine Dr Cap*) 1,200 mg PO QID [facility] Last Admin: 12/26/17 16:49 Dose: 1,200 mg Methylprednisolone Sodium Succinate (Solu-Medrol 40 Mg) 40 mg IV Q8H [facility] Last Admin: 12/26/17 11:42 Dose: 40 mg Morphine Sulfate (Morphine Vial*) 2 mg IV Q1H PRN PRN Reason: PAIN Last Admin: 12/23/17 21:27 Dose: 2 mg Multivitamins/Minerals (Theragran/Minerals Tab*) 1 tab PO DAILY [facility] Last Admin: 12/26/17 08:36 Dose: 1 tab Nortriptyline HCl (Pamelor Cap*) 50 mg PO BEDTIME [facility] Last Admin: 12/25/17 21:44 Dose: 50 mg Omeprazole (Prilosec Cap*) 20 mg PO 0730 [facility] Last Admin: 12/26/17 08:36 Dose: 20 mg Ondansetron HCl (Zofran Inj*) 4 mg IV Q4H PRN PRN Reason: NAUSEA/VOMITING Pregabalin (Lyrica Cap(*)) 200 mg PO BID [facility] Last Admin: 12/26/17 08:37 Dose: 200 mg Rifaximin (Xifaxan*) 550 mg PO BID [facility] Last Admin: 12/26/17 08:36 Dose: 550 mg Zolpidem Tartrate (Ambien Tab*) 10 mg PO BEDTIME PRN PRN Reason: SLEEP Last Admin: 12/25/17 23:36 Dose: 10 mg Vital Signs - 8 hr 12/26/17 12/26/17 12/26/17 10:37 11:45 15:21 Temperature 97.9 F 98.0 F Pulse Rate 86 90 Respiratory 17 18 20 Rate Blood Pressure 156/81 146/77 (mmHg) O2 Sat by Pulse 99 97 Oximetry Oxygen Devices in Use Now: None Appearance: Alert, NAD Eyes: No Scleral Icterus, PERRLA Ears/Nose/Mouth/Throat: NL Teeth, Lips, Gums, Mucous Membranes Moist Neck: NL Appearance and Movements; NL JVP, Trachea Midline Respiratory: Symmetrical Chest Expansion and Respiratory Effort, Clear to Auscultation Cardiovascular: NL Sounds; No Murmurs; No JVD, RRR, No Edema Abdominal: NL Sounds; No Tenderness; No Distention, No Hepatosplenomegaly Extremities: No Edema, No Clubbing, Cyanosis Skin: No Rash or Ulcers Neurological: Alert and Oriented x 3, NL Gait, NL Muscle Strength and Tone Nutrition: - - CLD Result Diagrams: 12/26/17 06:13 12/26/17 06:13 Additional Lab and Data: Lab Results 12/23/17 12/23/17 Range/Units 16:17 16:17 WBC 12.7 H (3.5-10.8) 10^3/ul RBC 3.90 L (4.00-5.40) 10^6/ul Hgb 11.2 L (12.0-16.0) g/dl Hct 34 L (35-47) % MCV 87 (80-97) fL MCH 29 (27-31) pg MCHC 33 (31-36) g/dl RDW 15 (10.5-15) % Plt Count 573 H (150-450) 10^3/ul MPV 7.0 L (7.4-10.4) um3 Neut % (Auto) Pending Lymph % (Auto) Pending [place] % (Auto) Pending Eos % (Auto) Pending Baso % (Auto) Pending Absolute Neuts (auto) Pending Absolute Lymphs (auto) Pending Absolute Monos (auto) Pending Absolute Eos (auto) Pending Absolute Basos (auto) Pending Absolute Nucleated RBC Pending Nucleated RBC % Pending ESR Pending Sodium 129 L (135-145) mmol/L Potassium 3.5 (3.5-5.0) mmol/L Chloride 93 L (101-111) mmol/L Carbon Dioxide 27 (22-32) mmol/L Anion Gap 9 (2-11) mmol/L BUN 7 (6-24) mg/dL Creatinine 0.75 (0.51-0.95) mg/dL Est GFR ( Amer) 94.1 (>60) Est GFR (Non-Af Amer) 77.8 (>60) BUN/Creatinine Ratio 9.3 (8-20) Glucose 170 H (70-100) mg/dL Calcium 8.5 L (8.6-10.3) mg/dL Magnesium 1.7 L (1.9-2.7) mg/dL Total Bilirubin 0.40 (0.2-1.0) mg/dL AST 13 (13-39) U/L ALT 11 (7-52) U/L Alkaline Phosphatase 100 (34-104) U/L C-Reactive Protein 27.69 H (<8.01) mg/L Total Protein 7.0 (6.4-8.9) g/dL Albumin 2.9 L (3.2-5.2) g/dL Globulin 4.1 H (2-4) g/dL Albumin/Globulin Ratio 0.7 L (1-3) Lipase < 10 L (11.0-82.0) U/L Microbiology and Other Data: Microbiology 12/23/17 17:11 Urine Culture - Final Urine Diagnostic Imaging: Patient Name: MONICA ESCAMILLA Medical Record#: [id number] Ordering Physician: Rafaela Pitts MD Acct.#: [id number] : 1955 Age: 62 Sex: F Location: [address] [place] [address] - MEDICAL Exam Date: 12/25/17604 ADM Status: ADM IN Order Information: CT BRAIN WO Accession Number: [id number] CPT: 39621 Indication: Fall, head injury. CT of the brain was performed without IV contrast. Ventricular structures are midline. No midline shift is noted. The extra-axial spaces are unremarkable. There is no evidence of intracranial mass or hemorrhage. No other high or low density lesions are identified. Mastoid air cells and paranasal sinuses are otherwise unremarkable. IMPRESSION: No intracranial mass or hemorrhage is noted. <Electronically signed by Rita Moran MD in [facility]> 12/25/17820 Dictated By: Rita Moran MD Dictated Date/Time: 12/25/17820 Transcribed Date/Time: 12/25/17819 Copy to: Assess/Plan/Problems-Billing Assessment: this is a 62 year old female patient with known history of UC that has been in a flare for some time, placed on Humira 6 weeks ago with no relief, presents with bloody diarrhea and abdominal pain, hyponatremia, hyperglycemia and thrombocytosis, found to have severe mckeon-colitis. - Patient Problems (1) Ulcerative colitis with rectal bleeding Code(s): K51.911 - ULCERATIVE COLITIS, UNSPECIFIED WITH RECTAL BLEEDING SNOMED Code(s): 94585693 Comment: - Dr. Epstein following - s/p colonoscopy 12/25 - Continue mesalamine and rifaxamin for now and and IV steroids Q8h - CLD - Plan for Entyvio IV to start next week (2) Hyperglycemia Code(s): R73.9 - HYPERGLYCEMIA, UNSPECIFIED SNOMED Code(s): 53066453 Comment: - Lispro SS with accuchecks AC and HS while on steroids, A1c pending (3) Hyponatremia Code(s): E87.1 - HYPO-OSMOLALITY AND HYPONATREMIA SNOMED Code(s): 67880711 Comment: - Resolved with NS boluses - Follow lytes (4) Reactive thrombocytosis Code(s): R79.89 - OTHER SPECIFIED ABNORMAL FINDINGS OF BLOOD CHEMISTRY SNOMED Code(s): 801364486 Comment: - In presence of UC flare - Platelets trending down, 439 today (5) Hypokalemia Code(s): E87.6 - HYPOKALEMIA SNOMED Code(s): 32366533 Comment: - K = 2.9 this AM - 40 KCL PO and 2 IV runs - Recheck BMP this evening (6) DVT prophylaxis Code(s): WEP2530 - SNOMED Code(s): 635792120 Comment: - DC heparin 2/2 rectal bleeding - SCDs while in bed - patient ambulatory (7) Full code status Code(s): Z78.9 - OTHER SPECIFIED HEALTH STATUS SNOMED Code(s): 693775860 Status and Disposition: Inpatient, continue supportive care until clear by GI. Plan to DC on Entyvio. CM working on authorization and plan for infusion either at home with [facility] or in infusion suite.
[2017-12-26 18:23] LABS: EGFR Non-African American 124.2 (>60)
[2017-12-26] MEDS: Gabapentin CAP(*) 300 MG PO SCH (21:03)
[2017-12-26] MEDS: Nortriptyline CAP* 25 MG PO SCH (21:04)
[2017-12-26] MEDS: Amitriptyline TAB* 100 MG PO SCH (21:04)
[2017-12-26] MEDS: Zolpidem TAB* 10 MG PO PRN (23:58)
[2017-12-26] MEDS: Acetaminophen TAB* 325 MG PO PRN (23:58)
[2017-12-27] MEDS: methylPREDNISolone SOD 40 MG* 1 ML VIAL IV SCH ×3 (03:02→17:49)
[2017-12-27] MEDS: Levothyroxine TAB* 75 MCG TAB PO SCH (05:49)
[2017-12-27 07:01] LABS: ABS Basophils 0 10^3/ul (0-0.2); ABS Eosinophils 0 10^3/ul (0-0.6); ABS Lymphocytes 1.1 10^3/ul (1.0-4.8); ABS Monocytes 0.7 10^3/ul (0-0.8); ABS Neutrophils 8.5 10^3/ul (1.5-7.7); ABS Nucleated RBC 0 10^3/ul; Eosinophil % 0.1 % (0-6); Hematocrit 25 % (35-47); Hemoglobin 8.4 g/dl (12.0-16.0); Lymphocyte % 10.9 % (25-47); Mean Corpuscular HGB Conc 34 g/dl (31-36); Mean Corpuscular Hemoglobin 29 pg (27-31); Mean Corpuscular Volume 88 fL (80-97); Mean Platelet Volume 7.1 um3 (7.4-10.4); Nucleated Red Blood Cells % 0.1; Platelet Count 377 10^3/ul (150-450); Red Blood Count 2.86 10^6/ul (4.00-5.40); Red Cell Distribution Width 15 % (10.5-15); White Blood Count 10.4 10^3/ul (3.5-10.8)
[2017-12-27 07:24] LABS: EGFR Non-African American 130.2 (>60)
[2017-12-27] MEDS ORDERED: Potassium Chloride LIQUID* 20 MEQ PACKET PO ONE (08:20)
[2017-12-27] MEDS: Ascorbic Acid TAB* 500 MG PO SCH (08:32)
[2017-12-27] MEDS: Atorvastatin* 20 MG TAB PO SCH (08:32)
[2017-12-27] MEDS: RiFAXimin* 550 MG TAB PO SCH ×2 (08:32→20:22)
[2017-12-27] MEDS: Multivitamins/Minerals TAB PO SCH (08:33)
[2017-12-27] MEDS: Insulin LISPRO* 1 UNITS UNIT SUBCUT SCH ×4 (08:33→21:20)
[2017-12-27] MEDS: Pregabalin CAP(*) 100 MG PO SCH ×2 (08:33→20:23)
[2017-12-27] MEDS: Omeprazole CAP* 20 MG PO SCH (08:33)
[2017-12-27] MEDS: Ferrous Gluconate TAB* 324 MG TAB PO SCH (08:33)
[2017-12-27] MEDS: Hydrocortisone 1% CREAM* 30 GM TUBE TOPICAL SCH ×2 (09:59→20:24)
[2017-12-27] MEDS ORDERED: Iron Sucrose* 200 MG in NS 0.9% 100 ML* 100 ML IVPB ONE (13:00)
--- NOTE | 2017-12-27 16:05 | PN ---
Subjective Date of Service: 12/27/17 Interval History: Patient continues to have hematochezia with more formed component than previous days. Patient has been feeling increasingly "shaky." Denies CP, Palpitations, dizziness, SOB, cough, N/V, F/C, dysuria, or other pain. Has moderate LLQ abdominal pain which is stable and not improving with steroids. Unsure if she took an iron supplement at home. Family History: Unchanged from Admission Social History: Unchanged from Admission Past Medical History: Unchanged from Admission Objective Active Medications: Acetaminophen (Tylenol Tab*) 650 mg PO Q4H PRN PRN Reason: FEVER/PAIN Last Admin: 12/26/17 23:58 Dose: 650 mg Al Hydrox/Mg Hydrox/Simethicone (Maalox Plus*) 30 ml PO Q6H PRN PRN Reason: INDIGESTION Amitriptyline HCl (Elavil Tab*) 100 mg PO BEDTIME [facility] Last Admin: 12/26/17 21:04 Dose: 100 mg Ascorbic Acid (Vitamin C Tab*) 1,000 mg PO DAILY [facility] Last Admin: 12/27/17 08:32 Dose: 1,000 mg Atorvastatin Calcium (Lipitor*) 20 mg PO DAILY [facility] Last Admin: 12/27/17 08:32 Dose: 20 mg Dextrose (D50w Syringe 50 Ml*) 12.5 gm IV PUSH .FOR FS < 60 - SS PRN PRN Reason: FS < 60 Gabapentin (Neurontin Cap(*)) 300 mg PO BEDTIME [facility] Last Admin: 12/26/17 21:03 Dose: 300 mg Hydrocortisone (Hytone Cream 1%*) 1 applic TOPICAL BID [facility] Last Admin: 12/27/17 09:59 Dose: Not Given Insulin Human Lispro (Humalog*) 0 units SUBCUT ACHS [facility]; Protocol Last Admin: 12/27/17 13:11 Dose: 4 units Levothyroxine Sodium (Synthroid Tab*) 75 mcg PO 0600 [facility] Last Admin: 12/27/17 05:49 Dose: 75 mcg Mesalamine (Mesalamine Dr Cap*) 1,200 mg PO QID [facility] Last Admin: 12/27/17 13:10 Dose: 1,200 mg Methylprednisolone Sodium Succinate (Solu-Medrol 40 Mg) 40 mg IV Q8H [facility] Last Admin: 12/27/17 13:11 Dose: 40 mg Morphine Sulfate (Morphine Vial*) 2 mg IV Q1H PRN PRN Reason: PAIN Last Admin: 12/23/17 21:27 Dose: 2 mg Multivitamins/Minerals (Theragran/Minerals Tab*) 1 tab PO DAILY [facility] Last Admin: 12/27/17 08:33 Dose: 1 tab Nortriptyline HCl (Pamelor Cap*) 50 mg PO BEDTIME [facility] Last Admin: 12/26/17 21:04 Dose: 50 mg Omeprazole (Prilosec Cap*) 20 mg PO 0730 [facility] Last Admin: 12/27/17 08:33 Dose: 20 mg Ondansetron HCl (Zofran Inj*) 4 mg IV Q4H PRN PRN Reason: NAUSEA/VOMITING Pregabalin (Lyrica Cap(*)) 200 mg PO BID [facility] Last Admin: 12/27/17 08:33 Dose: 200 mg Rifaximin (Xifaxan*) 550 mg PO BID [facility] Last Admin: 12/27/17 08:32 Dose: 550 mg Zolpidem Tartrate (Ambien Tab*) 10 mg PO BEDTIME PRN PRN Reason: SLEEP Last Admin: 12/26/17 23:58 Dose: 10 mg Vital Signs - 8 hr 12/27/17 12/27/17 08:13 08:33 Pulse Rate 91 Respiratory 16 16 Rate Blood Pressure 140/80 (mmHg) O2 Sat by Pulse 95 Oximetry Oxygen Devices in Use Now: None Appearance: Patient is a 62yo female who appears stated age and is sitting in the bed in [facility]. Eyes: No Scleral Icterus, PERRLA Ears/Nose/Mouth/Throat: NL Teeth, Lips, Gums, Clear Oropharnyx, Mucous Membranes Moist Neck: NL Appearance and Movements; NL JVP, Trachea Midline Respiratory: Symmetrical Chest Expansion and Respiratory Effort, Clear to Auscultation Cardiovascular: NL Sounds; No Murmurs; No JVD, RRR, No Edema Abdominal: No Hepatosplenomegaly, - - Tender to palpation in LLQ. Hypoactive bowel sounds. Lymphatic: No Cervical Adenopathy Extremities: No Edema, No Clubbing, Cyanosis Skin: No Rash or Ulcers, No Nodules or Sclerosis Neurological: Alert and Oriented x 3, NL Sensation, NL Gait, NL Muscle Strength and Tone, - - CN II-XII intact. Result Diagrams: 12/27/17 06:31 06/24/18 06:31 Additional Lab and Data: Lab Results Microbiology and Other Data: Microbiology Assess/Plan/Problems-Billing Assessment: this is a 62 year old female patient with known history of UC that has been in a flare for some time, placed on Humira 6 weeks ago with no relief, presents with bloody diarrhea and abdominal pain, hyponatremia, hyperglycemia and thrombocytosis, found to have severe mckeon-colitis. Minimal improvement on steroids with progressive anemia due to Iron Deficiency. - Patient Problems (1) Ulcerative colitis with rectal bleeding Current Visit: Yes Status: Acute Code(s): K51.911 - ULCERATIVE COLITIS, UNSPECIFIED WITH RECTAL BLEEDING SNOMED Code(s): 99907143 Comment: Appreciate Gastroenterology consult Colonoscopy on 12/25 Continue mesalamine and Steroids [place] diet. Plan for Entyvio IV to start next week C. Diff test ordered for Rule out. (2) Iron deficiency anemia Current Visit: Yes Status: Acute Code(s): D50.9 - IRON DEFICIENCY ANEMIA, UNSPECIFIED SNOMED Code(s): 59524845 Comment: Iron studies consistent with DMITRY with very low Ferritin. No response to oral iron, likely due to UC inflammation. Start IV Iron sucrose. (3) Hyperglycemia Current Visit: Yes Status: Acute Code(s): R73.9 - HYPERGLYCEMIA, UNSPECIFIED SNOMED Code(s): 83287775 Comment: Lispro SS with accuchecks AC and HS while on steroids, A1c pending (4) Hypokalemia Current Visit: Yes Status: Acute Code(s): E87.6 - HYPOKALEMIA SNOMED Code( s): 12335039 Comment: 3.4 this AM. Supplement PO. (5) Hyponatremia Current Visit: Yes Status: Acute Code(s): E87.1 - HYPO-OSMOLALITY AND HYPONATREMIA SNOMED Code(s): 35172256 Comment: Resolved, Follow. (6) Reactive thrombocytosis Current Visit: Yes Status: Acute Code(s): R79.89 - OTHER SPECIFIED ABNORMAL FINDINGS OF BLOOD CHEMISTRY SNOMED Code(s): 063866647 Comment: In presence of UC flare Platelets trending down Possibly also due to DMITRY. (7) DVT prophylaxis Current Visit: Yes Status: Acute Code(s): DYO3722 - SNOMED Code(s): 256053802 Comment: SCDs while in bed Encourage Ambulation (8) Full code status Current Visit: Yes Status: Acute Code(s): Z78.9 - OTHER SPECIFIED HEALTH STATUS SNOMED Code(s): 853338049 Status and Disposition: Inpatient, continue supportive care until clear by GI. Plan to DC on Entyvio. CM working on authorization and plan for infusion either at home with [facility] or in infusion suite.
[2017-12-27] MEDS: Gabapentin CAP(*) 300 MG PO SCH (20:22)
[2017-12-27] MEDS: Nortriptyline CAP* 25 MG PO SCH (20:22)
[2017-12-27] MEDS: Amitriptyline TAB* 100 MG PO SCH (20:25)
[2017-12-27] MEDS: Acetaminophen TAB* 325 MG PO PRN (23:31)
[2017-12-27] MEDS: Zolpidem TAB* 10 MG PO PRN (23:31)
[2017-12-28] MEDS: methylPREDNISolone SOD 40 MG* 1 ML VIAL IV SCH ×3 (03:18→17:53)
[2017-12-28] MEDS: Levothyroxine TAB* 75 MCG TAB PO SCH (05:42)
[2017-12-28 07:26] LABS: ABS Basophils 0 10^3/ul (0-0.2); ABS Eosinophils 0 10^3/ul (0-0.6); ABS Lymphocytes 1.2 10^3/ul (1.0-4.8); ABS Monocytes 0.6 10^3/ul (0-0.8); ABS Neutrophils 9.7 10^3/ul (1.5-7.7); ABS Nucleated RBC 0 10^3/ul; Eosinophil % 0.2 % (0-6); Hematocrit 28 % (35-47); Hemoglobin 9.1 g/dl (12.0-16.0); Lymphocyte % 10.2 % (25-47); Mean Corpuscular HGB Conc 33 g/dl (31-36); Mean Corpuscular Hemoglobin 29 pg (27-31); Mean Corpuscular Volume 88 fL (80-97); Mean Platelet Volume 7.2 um3 (7.4-10.4); Nucleated Red Blood Cells % 0.1; Platelet Count 369 10^3/ul (150-450); Red Blood Count 3.15 10^6/ul (4.00-5.40); Red Cell Distribution Width 15 % (10.5-15); White Blood Count 11.4 10^3/ul (3.5-10.8)
[2017-12-28 07:35] LABS: EGFR Non-African American 113.7 (>60)
[2017-12-28] MEDS: Pregabalin CAP(*) 100 MG PO SCH ×2 (08:52→21:03)
[2017-12-28] MEDS: Atorvastatin* 20 MG TAB PO SCH (08:52)
[2017-12-28] MEDS: RiFAXimin* 550 MG TAB PO SCH ×2 (08:52→21:03)
[2017-12-28] MEDS: Insulin LISPRO* 1 UNITS UNIT SUBCUT SCH ×4 (08:52→21:04)
[2017-12-28] MEDS: Omeprazole CAP* 20 MG PO SCH (08:52)
[2017-12-28] MEDS: Ascorbic Acid TAB* 500 MG PO SCH (08:52)
[2017-12-28] MEDS: Multivitamins/Minerals TAB PO SCH (08:53)
[2017-12-28] MEDS: Hydrocortisone 1% CREAM* 30 GM TUBE TOPICAL SCH ×2 (08:53→21:04)
[2017-12-28] MEDS ORDERED: Iron Sucrose* 200 MG in NS 0.9% 100 ML* 100 ML IVPB ONE (09:11)
--- NOTE | 2017-12-28 16:28 | PN ---
Subjective Date of Service: 12/28/17 Interval History: Patient has had decreased blood in her stool and decreased abdominal pain. Denies dizziness, CP, SOB, N/V, F/C, dysuria, or other pain. Is anxious about going home and having her symptoms come back before adequate treatment. Family History: Unchanged from Admission Social History: Unchanged from Admission Past Medical History: Unchanged from Admission Objective Active Medications: Acetaminophen (Tylenol Tab*) 650 mg PO Q4H PRN PRN Reason: FEVER/PAIN Last Admin: 12/27/17 23:31 Dose: 650 mg Al Hydrox/Mg Hydrox/Simethicone (Maalox Plus*) 30 ml PO Q6H PRN PRN Reason: INDIGESTION Amitriptyline HCl (Elavil Tab*) 100 mg PO BEDTIME [facility] Last Admin: 12/27/17 20:25 Dose: 100 mg Ascorbic Acid (Vitamin C Tab*) 1,000 mg PO DAILY [facility] Last Admin: 12/28/17 08:52 Dose: 1,000 mg Atorvastatin Calcium (Lipitor*) 20 mg PO DAILY [facility] Last Admin: 12/28/17 08:52 Dose: 20 mg Dextrose (D50w Syringe 50 Ml*) 12.5 gm IV PUSH .FOR FS < 60 - SS PRN PRN Reason: FS < 60 Gabapentin (Neurontin Cap(*)) 300 mg PO BEDTIME [facility] Last Admin: 12/27/17 20:22 Dose: 300 mg Hydrocortisone (Hytone Cream 1%*) 1 applic TOPICAL BID [facility] Last Admin: 12/28/17 08:53 Dose: Not Given Insulin Human Lispro (Humalog*) 0 units SUBCUT [facility]; Protocol Last Admin: 12/28/17 12:42 Dose: 10 units Levothyroxine Sodium (Synthroid Tab*) 75 mcg PO 0600 [facility] Last Admin: 12/28/17 05:42 Dose: 75 mcg Mesalamine (Mesalamine Dr Cap*) 1,200 mg PO QID [facility] Last Admin: 12/28/17 12:43 Dose: 1,200 mg Methylprednisolone Sodium Succinate (Solu-Medrol 40 Mg) 40 mg IV Q8H [facility] Last Admin: 12/28/17 11:27 Dose: 40 mg Morphine Sulfate (Morphine Vial*) 2 mg IV Q1H PRN PRN Reason: PAIN Last Admin: 12/23/17 21:27 Dose: 2 mg Multivitamins/Minerals (Theragran/Minerals Tab*) 1 tab PO DAILY [facility] Last Admin: 12/28/17 08:53 Dose: 1 tab Nortriptyline HCl (Pamelor Cap*) 50 mg PO BEDTIME [facility] Last Admin: 12/27/17 20:22 Dose: 50 mg Omeprazole (Prilosec Cap*) 20 mg PO 0730 [facility] Last Admin: 12/28/17 08:52 Dose: 20 mg Ondansetron HCl (Zofran Inj*) 4 mg IV Q4H PRN PRN Reason: NAUSEA/VOMITING Pregabalin (Lyrica Cap(*)) 200 mg PO BID [facility] Last Admin: 12/28/17 08:52 Dose: 200 mg Rifaximin (Xifaxan*) 550 mg PO BID [facility] Last Admin: 12/28/17 08:52 Dose: 550 mg Zolpidem Tartrate (Ambien Tab*) 10 mg PO BEDTIME PRN PRN Reason: SLEEP Last Admin: 12/27/17 23:31 Dose: 10 mg Vital Signs - 8 hr 12/28/17 12/28/17 12/28/17 08:52 11:18 11:36 Temperature 97.3 F Pulse Rate 106 Respiratory 16 14 18 Rate Blood Pressure 118/70 (mmHg) O2 Sat by Pulse 97 Oximetry 12/28/17 15:15 Temperature 98 F Pulse Rate 95 Respiratory 18 Rate Blood Pressure 146/66 (mmHg) O2 Sat by Pulse 99 Oximetry Oxygen Devices in Use Now: None Appearance: Patient is a 62yo female who appears stated age and is sitting in the bed in [facility]. Eyes: No Scleral Icterus, PERRLA Ears/Nose/Mouth/Throat: NL Teeth, Lips, Gums, Clear Oropharnyx, Mucous Membranes Moist Neck: NL Appearance and Movements; NL JVP, Trachea Midline Respiratory: Symmetrical Chest Expansion and Respiratory Effort, Clear to Auscultation Cardiovascular: NL Sounds; No Murmurs; No JVD, RRR, No Edema Abdominal: No Hepatosplenomegaly, - - Hypoactive bowel sounds. Tenderness to palpation over LLQ. Lymphatic: No Cervical Adenopathy Extremities: No Edema Skin: No Rash or Ulcers, No Nodules or Sclerosis Neurological: Alert and Oriented x 3, NL Sensation, NL Gait, NL Muscle Strength and Tone, - - CN II-XII intact. Result Diagrams: 12/28/17 06:54 12/28/17 06:54 Additional Lab and Data: Lab Results Microbiology and Other Data: Microbiology Diagnostic Imaging: Patient Name: MONICA ESCAMILLA Medical Record#: [id number] Ordering Physician: Rafaela Pitts MD Acct.#: [id number] : 1955 Age: 62 Sex: F Location: [address] [place] [address] MEDICAL Exam Date: 12/25/17604 ADM Status: ADM IN Order Information: CT BRAIN WO Accession Number: [id number] CPT: 50896 Indication: Fall, head injury. CT of the brain was performed without IV contrast. Ventricular structures are midline. No midline shift is noted. The extra-axial spaces are unremarkable. There is no evidence of intracranial mass or hemorrhage. No other high or low density lesions are identified. Mastoid air cells and paranasal sinuses are otherwise unremarkable. IMPRESSION: No intracranial mass or hemorrhage is noted. <Electronically signed by Rita Moran MD in [facility]> 12/25/17820 Dictated By: Rita Moran MD Dictated Date/Time: 12/25/17820 Transcribed Date/Time: 12/25/17819 Copy to: Assess/Plan/Problems-Billing Assessment: this is a 62 year old female patient with known history of UC that has been in a flare for some time, placed on Humira 6 weeks ago with no relief, presents with bloody diarrhea and abdominal pain, hyponatremia, hyperglycemia and thrombocytosis, found to have severe mckeon-colitis. Minimal improvement on steroids with progressive anemia due to Iron Deficiency. - Patient Problems (1) Ulcerative colitis with rectal bleeding Current Visit: Yes Status: Acute Code(s): K51.911 - ULCERATIVE COLITIS, UNSPECIFIED WITH RECTAL BLEEDING SNOMED Code(s): 14160385 Comment: Appreciate Gastroenterology consult Colonoscopy on 12/25 Continue mesalamine and Steroids [place] diet. Plan for Entyvio IV to start next week C. Diff negative. (2) Iron deficiency anemia Current Visit: Yes Status: Acute Code(s): D50.9 - IRON DEFICIENCY ANEMIA, UNSPECIFIED SNOMED Code(s): 29139973 Comment: Iron studies consistent with DMITRY with very low Ferritin. No response to oral iron, likely due to UC inflammation. Start IV Iron sucrose. (3) Hyperglycemia Current Visit: Yes Status: Acute Code(s): R73.9 - HYPERGLYCEMIA, UNSPECIFIED SNOMED Code(s): 47540564 Comment: Lispro SS with accuchecks AC and HS while on steroids, A1c 8.6 (4) Hypokalemia Current Visit: Yes Status: Acute Code(s): E87.6 - HYPOKALEMIA SNOMED Code( s): 13602385 Comment: Resolved, Monitor. (5) Hyponatremia Current Visit: Yes Status: Acute Code(s): E87.1 - HYPO-OSMOLALITY AND HYPONATREMIA SNOMED Code(s): 21062723 Comment: Resolved, Follow. (6) Reactive thrombocytosis Current Visit: Yes Status: Acute Code(s): R79.89 - OTHER SPECIFIED ABNORMAL FINDINGS OF BLOOD CHEMISTRY SNOMED Code(s): 482860082 Comment: In presence of UC flare Platelets trending down Possibly also due to DMITRY. (7) DVT prophylaxis Current Visit: Yes Status: Acute Code(s): IKB7340 - SNOMED Code(s): 681000223 Comment: SCDs while in bed Encourage Ambulation (8) Full code status Current Visit: Yes Status: Acute Code(s): Z78.9 - OTHER SPECIFIED HEALTH STATUS SNOMED Code(s): 607833715 Status and Disposition: Inpatient, continue supportive care until clear by GI. Plan to DC on Entyvio. CM working on authorization and plan for infusion either at home with [facility] or in infusion suite.
[2017-12-28] MEDS: Nortriptyline CAP* 25 MG PO SCH (21:03)
[2017-12-28] MEDS: Amitriptyline TAB* 100 MG PO SCH (21:03)
[2017-12-28] MEDS: Gabapentin CAP(*) 300 MG PO SCH (21:04)
[2017-12-28] MEDS: Morphine VIAL* 4 MG/ML VIAL (1 ml vial) IV PRN (23:05)
[2017-12-28] MEDS: Zolpidem TAB* 10 MG PO PRN (23:06)
[2017-12-29] MEDS: methylPREDNISolone SOD 40 MG* 1 ML VIAL IV SCH ×3 (03:12→18:18)
[2017-12-29] MEDS: Levothyroxine TAB* 75 MCG TAB PO SCH (05:46)
[2017-12-29 08:32] LABS: ABS Basophils 0 10^3/ul (0-0.2); ABS Eosinophils 0 10^3/ul (0-0.6); ABS Lymphocytes 1.5 10^3/ul (1.0-4.8); ABS Monocytes 0.5 10^3/ul (0-0.8); ABS Neutrophils 8.3 10^3/ul (1.5-7.7); ABS Nucleated RBC 0 10^3/ul; Eosinophil % 0 % (0-6); Hematocrit 29 % (35-47); Hemoglobin 9.8 g/dl (12.0-16.0); Lymphocyte % 14.3 % (25-47); Mean Corpuscular HGB Conc 33 g/dl (31-36); Mean Corpuscular Hemoglobin 29 pg (27-31); Mean Corpuscular Volume 89 fL (80-97); Mean Platelet Volume 7.2 um3 (7.4-10.4); Nucleated Red Blood Cells % 0.3; Platelet Count 379 10^3/ul (150-450); Red Blood Count 3.32 10^6/ul (4.00-5.40); Red Cell Distribution Width 16 % (10.5-15); White Blood Count 10.4 10^3/ul (3.5-10.8)
[2017-12-29 08:54] LABS: EGFR Non-African American 100.6 (>60)
[2017-12-29] MEDS ORDERED: Iron Sucrose* 200 MG in NS 0.9% 100 ML* 100 ML IVPB ONE (09:01)
[2017-12-29] MEDS: Pregabalin CAP(*) 100 MG PO SCH ×2 (09:29→20:33)
[2017-12-29] MEDS: Ascorbic Acid TAB* 500 MG PO SCH (09:30)
[2017-12-29] MEDS: RiFAXimin* 550 MG TAB PO SCH ×2 (09:30→20:34)
[2017-12-29] MEDS: Insulin LISPRO* 1 UNITS UNIT SUBCUT SCH ×4 (09:30→20:32)
[2017-12-29] MEDS: Omeprazole CAP* 20 MG PO SCH (09:30)
[2017-12-29] MEDS: Atorvastatin* 20 MG TAB PO SCH (09:30)
[2017-12-29] MEDS: Multivitamins/Minerals TAB PO SCH (09:30)
[2017-12-29] MEDS: Hydrocortisone 1% CREAM* 30 GM TUBE TOPICAL SCH ×2 (09:32→20:36)
[2017-12-29] MEDS ORDERED: PPD test dose* 5 TU/0.1 ML TEST (*USE PPD ORDER SET*) INTRADERM ONE (14:00)
--- NOTE | 2017-12-29 16:08 | PN ---
Subjective Date of Service: 12/29/17 Interval History: Patient has been having continued loose bowel movments. Occasionally with blood both overall improving from previous days. Abdominal pain also decreased. Patient denies F/C, N/V, CP, dysuria, SOB, dizziness, palpitations or other pain. Patient is still anxious about discharge home but is hoping to go home soon as she realizes she cant be in the hospital indefinitely. Family History: Unchanged from Admission Social History: Unchanged from Admission Past Medical History: Unchanged from Admission Objective Active Medications: Acetaminophen (Tylenol Tab*) 650 mg PO Q4H PRN PRN Reason: FEVER/PAIN Last Admin: 12/27/17 23:31 Dose: 650 mg Al Hydrox/Mg Hydrox/Simethicone (Maalox Plus*) 30 ml PO Q6H PRN PRN Reason: INDIGESTION Amitriptyline HCl (Elavil Tab*) 100 mg PO BEDTIME [facility] Last Admin: 12/28/17 21:03 Dose: 100 mg Ascorbic Acid (Vitamin C Tab*) 1,000 mg PO DAILY [facility] Last Admin: 12/29/17 09:30 Dose: 1,000 mg Atorvastatin Calcium (Lipitor*) 20 mg PO DAILY [facility] Last Admin: 12/29/17 09:30 Dose: 20 mg Dextrose (D50w Syringe 50 Ml*) 12.5 gm IV PUSH .FOR FS < 60 - SS PRN PRN Reason: FS < 60 Gabapentin (Neurontin Cap(*)) 300 mg PO BEDTIME [facility] Last Admin: 12/28/17 21:04 Dose: 300 mg Hydrocortisone (Hytone Cream 1%*) 1 applic TOPICAL BID [facility] Last Admin: 12/29/17 09:32 Dose: 1 applic Insulin Human Lispro (Humalog*) 0 units SUBCUT ACHS [facility]; Protocol Last Admin: 12/29/17 12:49 Dose: 2 units Levothyroxine Sodium (Synthroid Tab*) 75 mcg PO 0600 [facility] Last Admin: 12/29/17 05:46 Dose: 75 mcg Mesalamine (Mesalamine Dr Cap*) 1,200 mg PO QID [facility] Last Admin: 12/29/17 12:49 Dose: 1,200 mg Methylprednisolone Sodium Succinate (Solu-Medrol 40 Mg) 40 mg IV Q8H [facility] Last Admin: 12/29/17 12:50 Dose: 40 mg Morphine Sulfate (Morphine Vial*) 2 mg IV Q1H PRN PRN Reason: PAIN Last Admin: 12/28/17 23:05 Dose: 2 mg Multivitamins/Minerals (Theragran/Minerals Tab*) 1 tab PO DAILY [facility] Last Admin: 12/29/17 09:30 Dose: 1 tab Nortriptyline HCl (Pamelor Cap*) 50 mg PO BEDTIME [facility] Last Admin: 12/28/17 21:03 Dose: 50 mg Omeprazole (Prilosec Cap*) 20 mg PO 0730 [facility] Last Admin: 12/29/17 09:30 Dose: 20 mg Ondansetron HCl (Zofran Inj*) 4 mg IV Q4H PRN PRN Reason: NAUSEA/VOMITING Pregabalin (Lyrica Cap(*)) 200 mg PO BID [facility] Last Admin: 12/29/17 09:29 Dose: 200 mg Rifaximin (Xifaxan*) 550 mg PO BID [facility] Last Admin: 12/29/17 09:30 Dose: 550 mg Zolpidem Tartrate (Ambien Tab*) 10 mg PO BEDTIME PRN PRN Reason: SLEEP Last Admin: 12/28/17 23:06 Dose: 10 mg Vital Signs - 8 hr 12/29/17 12/29/17 09:29 12:28 Respiratory 16 14 Rate Oxygen Devices in Use Now: None Appearance: Patient is a 62yo female who appears stated age and is sitting in the bed in [facility]. Eyes: No Scleral Icterus, PERRLA Ears/Nose/Mouth/Throat: NL Teeth, Lips, Gums, Clear Oropharnyx, Mucous Membranes Moist Neck: NL Appearance and Movements; NL JVP, Trachea Midline Respiratory: Symmetrical Chest Expansion and Respiratory Effort, Clear to Auscultation Cardiovascular: NL Sounds; No Murmurs; No JVD, RRR, - - 1+ edema in B/L LE. Decreased from previous exam. Abdominal: NL Sounds; No Tenderness; No Distention, - - Tenderness to palpation over LLQ. Consistent with previous exam. Lymphatic: No Cervical Adenopathy Extremities: No Clubbing, Cyanosis Skin: No Rash or Ulcers, No Nodules or Sclerosis Neurological: Alert and Oriented x 3, NL Sensation, NL Muscle Strength and Tone , - - CN II-XII intact. Result Diagrams: 12/29/17 08:13 12/29/17 08:13 Additional Lab and Data: Lab Results Microbiology and Other Data: Microbiology Diagnostic Imaging: Patient Name: MONICA ESCAMILLA Medical Record#: [id number] Ordering Physician: Rafaela Pitts MD Acct.#: [id number] : 1955 Age: 62 Sex: F Location: [address] [place] [address] MEDICAL Exam Date: 12/25/17604 ADM Status: ADM IN Order Information: CT BRAIN WO Accession Number: [id number] CPT: 59951 Indication: Fall, head injury. CT of the brain was performed without IV contrast. Ventricular structures are midline. No midline shift is noted. The extra-axial spaces are unremarkable. There is no evidence of intracranial mass or hemorrhage. No other high or low density lesions are identified. Mastoid air cells and paranasal sinuses are otherwise unremarkable. IMPRESSION: No intracranial mass or hemorrhage is noted. <Electronically signed by Rita Moran MD in [facility]> 12/25/17820 Dictated By: Rita Moran MD Dictated Date/Time: 12/25/17820 Transcribed Date/Time: 12/25/17819 Copy to: Assess/Plan/Problems-Billing Assessment: this is a 62 year old female patient with known history of UC that has been in a flare for some time, placed on Humira 6 weeks ago with no relief, presents with bloody diarrhea and abdominal pain, hyponatremia, hyperglycemia and thrombocytosis, found to have severe mckeon-colitis. Minimal improvement on steroids with progressive anemia due to Iron Deficiency. - Patient Problems (1) Ulcerative colitis with rectal bleeding Current Visit: Yes Status: Acute Code(s): K51.911 - ULCERATIVE COLITIS, UNSPECIFIED WITH RECTAL BLEEDING SNOMED Code(s): 73385590 Comment: Appreciate Gastroenterology consult Colonoscopy on 12/25 Continue mesalamine and Steroids. Will begin taper soon. Gilliam diet. Plan for Entyvio IV to start when approved. C. Diff negative. (2) Iron deficiency anemia Current Visit: Yes Status: Acute Code(s): D50.9 - IRON DEFICIENCY ANEMIA, UNSPECIFIED SNOMED Code(s): 08589671 Comment: Iron studies consistent with DMITRY with very low Ferritin. No response to oral iron, likely due to UC inflammation. Start IV Iron sucrose. (3) Hyperglycemia Current Visit: Yes Status: Acute Code(s): R73.9 - HYPERGLYCEMIA, UNSPECIFIED SNOMED Code(s): 75547514 Comment: Lispro SS with accuchecks AC and HS while on steroids, A1c 8.6 Only moderate control. Start Long acting insulin. (4) Hypokalemia Current Visit: Yes Status: Acute Code(s): E87.6 - HYPOKALEMIA SNOMED Code( s): 73501327 Comment: Resolved, Monitor. (5) Hyponatremia Current Visit: Yes Status: Acute Code(s): E87.1 - HYPO-OSMOLALITY AND HYPONATREMIA SNOMED Code(s): 05442508 Comment: Resolved, Follow. (6) Reactive thrombocytosis Current Visit: Yes Status: Acute Code(s): R79.89 - OTHER SPECIFIED ABNORMAL FINDINGS OF BLOOD CHEMISTRY SNOMED Code(s): 329584106 Comment: In presence of UC flare Platelets trending down Possibly also due to DMITRY. (7) DVT prophylaxis Current Visit: Yes Status: Acute Code(s): LLW2733 - SNOMED Code(s): 331547484 Comment: SCDs while in bed Encourage Ambulation (8) Full code status Current Visit: Yes Status: Acute Code(s): Z78.9 - OTHER SPECIFIED HEALTH STATUS SNOMED Code(s): 003292328 Status and Disposition: Inpatient, continue supportive care until clear by GI. Plan to DC on Entyvio. CM working on authorization and plan for infusion either at home with [facility] or in infusion suite.
[2017-12-29] MEDS: Insulin GLARGINE(*) 1 UNITS UNIT SUBCUT SCH (18:17)
[2017-12-29] MEDS: Nortriptyline CAP* 25 MG PO SCH (20:33)
[2017-12-29] MEDS: Gabapentin CAP(*) 300 MG PO SCH (20:33)
[2017-12-29] MEDS: Amitriptyline TAB* 100 MG PO SCH (20:34)
[2017-12-29] MEDS: Acetaminophen TAB* 325 MG PO PRN (23:25)
[2017-12-29] MEDS: Zolpidem TAB* 10 MG PO PRN (23:25)
[2017-12-30] MEDS: methylPREDNISolone SOD 40 MG* 1 ML VIAL IV SCH (03:12)
[2017-12-30] MEDS: Levothyroxine TAB* 75 MCG TAB PO SCH (05:30)
[2017-12-30 06:59] LABS: ABS Basophils 0 10^3/ul (0-0.2); ABS Eosinophils 0 10^3/ul (0-0.6); ABS Lymphocytes 1.6 10^3/ul (1.0-4.8); ABS Monocytes 0.5 10^3/ul (0-0.8); ABS Neutrophils 8.8 10^3/ul (1.5-7.7); ABS Nucleated RBC 0 10^3/ul; Eosinophil % 0.1 % (0-6); Hematocrit 28 % (35-47); Hemoglobin 9.4 g/dl (12.0-16.0); Lymphocyte % 14.5 % (25-47); Mean Corpuscular HGB Conc 34 g/dl (31-36); Mean Corpuscular Hemoglobin 30 pg (27-31); Mean Corpuscular Volume 89 fL (80-97); Nucleated Red Blood Cells % 0.3; Platelet Count 341 10^3/ul (150-450); Red Blood Count 3.12 10^6/ul (4.00-5.40); Red Cell Distribution Width 16 % (10.5-15); White Blood Count 10.9 10^3/ul (3.5-10.8)
[2017-12-30 07:20] LABS: EGFR Non-African American 116.1 (>60)
[2017-12-30] MEDS: RiFAXimin* 550 MG TAB PO SCH ×2 (09:25→20:31)
[2017-12-30] MEDS: Omeprazole CAP* 20 MG PO SCH (09:26)
[2017-12-30] MEDS: Ascorbic Acid TAB* 500 MG PO SCH (09:26)
[2017-12-30] MEDS: Atorvastatin* 20 MG TAB PO SCH (09:26)
[2017-12-30] MEDS: Multivitamins/Minerals TAB PO SCH (09:26)
[2017-12-30] MEDS: Pregabalin CAP(*) 100 MG PO SCH ×2 (09:26→20:31)
[2017-12-30] MEDS: Insulin LISPRO* 1 UNITS UNIT SUBCUT SCH ×4 (09:27→20:33)
[2017-12-30] MEDS: Hydrocortisone 1% CREAM* 30 GM TUBE TOPICAL SCH ×2 (09:28→20:31)
[2017-12-30] MEDS ORDERED: Iron Sucrose* 200 MG in NS 0.9% 100 ML* 100 ML IVPB ONE (10:00)
[2017-12-30] MEDS: Mercaptopurine TAB* 50 MG PO SCH (12:01)
[2017-12-30] MEDS: predniSONE TAB* 20 MG PO SCH (12:02)
[2017-12-30] MEDS: Acetaminophen TAB* 325 MG PO PRN ×2 (15:10→22:36)
--- NOTE | 2017-12-30 15:45 | PN ---
Subjective Date of Service: 12/30/17 Interval History: Patient has been having more formed stools today. Intermittent and variable amount of hematochezia. Persistent abdominal pain slightly worse today. Denies F /C, N/V, CP, SOB, dizziness, palpitations, or other pain. Family History: Unchanged from Admission Social History: Unchanged from Admission Past Medical History: Unchanged from Admission Objective Active Medications: Acetaminophen (Tylenol Tab*) 650 mg PO Q4H PRN PRN Reason: FEVER/PAIN Last Admin: 12/30/17 15:10 Dose: 650 mg Al Hydrox/Mg Hydrox/Simethicone (Maalox Plus*) 30 ml PO Q6H PRN PRN Reason: INDIGESTION Amitriptyline HCl (Elavil Tab*) 100 mg PO BEDTIME [facility] Last Admin: 12/29/17 20:34 Dose: 100 mg Ascorbic Acid (Vitamin C Tab*) 1,000 mg PO DAILY [facility] Last Admin: 12/30/17 09:26 Dose: 1,000 mg Atorvastatin Calcium (Lipitor*) 20 mg PO DAILY [facility] Last Admin: 12/30/17 09:26 Dose: 20 mg Dextrose (D50w Syringe 50 Ml*) 12.5 gm IV PUSH .FOR FS < 60 - SS PRN PRN Reason: FS < 60 Gabapentin (Neurontin Cap(*)) 300 mg PO BEDTIME [facility] Last Admin: 12/29/17 20:33 Dose: 300 mg Hydrocortisone (Hytone Cream 1%*) 1 applic TOPICAL BID [facility] Last Admin: 12/30/17 09:28 Dose: 1 applic Insulin Glargine (Lantus(*)) 10 units SUBCUT Q24H [facility] Last Admin: 12/29/17 18:17 Dose: 10 units Insulin Human Lispro (Humalog*) 0 units SUBCUT ACHS [facility]; Protocol Last Admin: 12/30/17 12:02 Dose: 2 units Levothyroxine Sodium (Synthroid Tab*) 75 mcg PO 0600 [facility] Last Admin: 12/30/17 05:30 Dose: 75 mcg Mercaptopurine (Purinethol Tab*) 50 mg PO DAILY [facility] Last Admin: 12/30/17 12:01 Dose: 50 mg Mesalamine (Mesalamine Dr Cap*) 1,200 mg PO QID [facility] Last Admin: 12/30/17 12:05 Dose: 1,200 mg Morphine Sulfate (Morphine Vial*) 2 mg IV Q1H PRN PRN Reason: PAIN Last Admin: 12/28/17 23:05 Dose: 2 mg Multivitamins/Minerals (Theragran/Minerals Tab*) 1 tab PO DAILY [facility] Last Admin: 12/30/17 09:26 Dose: 1 tab Nortriptyline HCl (Pamelor Cap*) 50 mg PO BEDTIME [facility] Last Admin: 12/29/17 20:33 Dose: 50 mg Omeprazole (Prilosec Cap*) 20 mg PO 0730 [facility] Last Admin: 12/30/17 09:26 Dose: 20 mg Ondansetron HCl (Zofran Inj*) 4 mg IV Q4H PRN PRN Reason: NAUSEA/VOMITING Prednisone (Deltasone Tab*) 80 mg PO DAILY [facility] Last Admin: 12/30/17 12:02 Dose: 80 mg Pregabalin (Lyrica Cap(*)) 200 mg PO BID [facility] Last Admin: 12/30/17 09:26 Dose: 200 mg Rifaximin (Xifaxan*) 550 mg PO BID [facility] Last Admin: 12/30/17 09:25 Dose: 550 mg Zolpidem Tartrate (Ambien Tab*) 10 mg PO BEDTIME PRN PRN Reason: SLEEP Last Admin: 12/29/17 23:25 Dose: 10 mg Vital Signs - 8 hr 12/30/17 12/30/17 12/30/17 09:26 11:30 12:17 Temperature 98.3 F Pulse Rate 90 Respiratory 19 16 Rate Blood Pressure 140/73 (mmHg) O2 Sat by Pulse 95 Oximetry Oxygen Devices in Use Now: None Appearance: Patient is a 62yo female who appears stated age and is sitting in the bed in [facility]. Eyes: No Scleral Icterus, PERRLA Ears/Nose/Mouth/Throat: NL Teeth, Lips, Gums, Clear Oropharnyx, Mucous Membranes Moist Neck: NL Appearance and Movements; NL JVP, Trachea Midline Respiratory: Symmetrical Chest Expansion and Respiratory Effort, Clear to Auscultation Cardiovascular: NL Sounds; No Murmurs; No JVD, RRR, No Edema Abdominal: No Hepatosplenomegaly, - - Tenderness to Palpation over LLQ. Lymphatic: No Cervical Adenopathy Extremities: No Edema, No Clubbing, Cyanosis Skin: No Rash or Ulcers, No Nodules or Sclerosis Neurological: Alert and Oriented x 3, NL Sensation, NL Muscle Strength and Tone , - - CN II-XII intact. Result Diagrams: 12/30/17 06:39 12/30/17 06:39 Additional Lab and Data: Lab Results Microbiology and Other Data: Microbiology Diagnostic Imaging: Patient Name: MONICA ESCAMILLA Medical Record#: [id number] Ordering Physician: Rafaela Pitts MD Acct.#: [id number] : 1955 Age: 62 Sex: F Location: [address] [place] [address] - MEDICAL Exam Date: 12/25/17604 ADM Status: ADM IN Order Information: CT BRAIN WO Accession Number: [id number] CPT: 14048 Indication: Fall, head injury. CT of the brain was performed without IV contrast. Ventricular structures are midline. No midline shift is noted. The extra-axial spaces are unremarkable. There is no evidence of intracranial mass or hemorrhage. No other high or low density lesions are identified. Mastoid air cells and paranasal sinuses are otherwise unremarkable. IMPRESSION: No intracranial mass or hemorrhage is noted. <Electronically signed by Rita Moran MD in [facility]> 12/25/17820 Dictated By: Rita Moran MD Dictated Date/Time: 12/25/17820 Transcribed Date/Time: 12/25/17819 Copy to: Assess/Plan/Problems-Billing Assessment: this is a 62 year old female patient with known history of UC that has been in a flare for some time, placed on Humira 6 weeks ago with no relief, presents with bloody diarrhea and abdominal pain, hyponatremia, hyperglycemia and thrombocytosis, found to have severe mckeon-colitis. Minimal improvement on steroids with progressive anemia due to Iron Deficiency. - Patient Problems (1) Ulcerative colitis with rectal bleeding Current Visit: Yes Status: Acute Code(s): K51.911 - ULCERATIVE COLITIS, UNSPECIFIED WITH RECTAL BLEEDING SNOMED Code(s): 91969717 Comment: Appreciate Gastroenterology consult Colonoscopy on 12/25 Continue mesalamine and Steroids. Change to Prednisone 80mg PO daily. Start 6MP until Entyvio approved. Joice diet. Plan for Entyvio IV to start when approved. C. Diff negative. (2) Iron deficiency anemia Current Visit: Yes Status: Acute Code(s): D50.9 - IRON DEFICIENCY ANEMIA, UNSPECIFIED SNOMED Code(s): 43066244 Comment: Iron studies consistent with DMITRY with very low Ferritin. No response to oral iron, likely due to UC inflammation. Start IV Iron sucrose. (3) Hyperglycemia Current Visit: Yes Status: Acute Code(s): R73.9 - HYPERGLYCEMIA, UNSPECIFIED SNOMED Code(s): 12820372 Comment: Lispro SS with accuchecks AC and HS while on steroids, A1c 8.6 Improved control. Start Long acting insulin. (4) Hypokalemia Current Visit: Yes Status: Acute Code(s): E87.6 - HYPOKALEMIA SNOMED Code( s): 65754130 Comment: Resolved, Monitor. (5) Hyponatremia Current Visit: Yes Status: Acute Code(s): E87.1 - HYPO-OSMOLALITY AND HYPONATREMIA SNOMED Code(s): 58662788 Comment: Resolved, Follow. (6) Reactive thrombocytosis Current Visit: Yes Status: Acute Code(s): R79.89 - OTHER SPECIFIED ABNORMAL FINDINGS OF BLOOD CHEMISTRY SNOMED Code(s): 512981350 Comment: In presence of UC flare Platelets trending down Possibly also due to DMITRY. (7) DVT prophylaxis Current Visit: Yes Status: Acute Code(s): FJE0240 - SNOMED Code(s): 935354017 Comment: SCDs while in bed Encourage Ambulation (8) Full code status Current Visit: Yes Status: Acute Code(s): Z78.9 - OTHER SPECIFIED HEALTH STATUS SNOMED Code(s): 819182879 Status and Disposition: Inpatient, continue supportive care until clear by GI. Plan to DC on Entyvio. CM working on authorization and plan for infusion either at home with [facility] or in infusion suite.
[2017-12-30] MEDS: Insulin GLARGINE(*) 1 UNITS UNIT SUBCUT SCH (18:09)
[2017-12-30] MEDS: Gabapentin CAP(*) 300 MG PO SCH (20:30)
[2017-12-30] MEDS: Nortriptyline CAP* 25 MG PO SCH (20:30)
[2017-12-30] MEDS: Amitriptyline TAB* 100 MG PO SCH (20:31)
[2017-12-30] MEDS ORDERED: Zolpidem TAB* 10 MG PO PRN (22:29)
[2017-12-31] MEDS: Levothyroxine TAB* 75 MCG TAB PO SCH (05:53)
[2017-12-31 06:38] LABS: ABS Basophils 0 10^3/ul (0-0.2); ABS Eosinophils 0.1 10^3/ul (0-0.6); ABS Lymphocytes 4.2 10^3/ul (1.0-4.8); ABS Neutrophils 7.3 10^3/ul (1.5-7.7); ABS Nucleated RBC 0 10^3/ul; Eosinophil % 1.1 % (0-6); Hematocrit 30 % (35-47); Hemoglobin 9.7 g/dl (12.0-16.0); Lymphocyte % 33.5 % (25-47); Mean Corpuscular HGB Conc 33 g/dl (31-36); Mean Corpuscular Hemoglobin 29 pg (27-31); Mean Corpuscular Volume 89 fL (80-97); Mean Platelet Volume 7.4 um3 (7.4-10.4); Nucleated Red Blood Cells % 0.2; Platelet Count 358 10^3/ul (150-450); Red Blood Count 3.32 10^6/ul (4.00-5.40); Red Cell Distribution Width 16 % (10.5-15); White Blood Count 12.6 10^3/ul (3.5-10.8)
[2017-12-31 06:39] LABS: EGFR Non-African American 104.7 (>60)
[2017-12-31] MEDS ORDERED: Iron Sucrose* 200 MG in NS 0.9% 100 ML* 100 ML IVPB ONE (07:30)
[2017-12-31] MEDS: Insulin LISPRO* 1 UNITS UNIT SUBCUT SCH ×2 (08:50→13:33)
[2017-12-31] MEDS: Multivitamins/Minerals TAB PO SCH (08:52)
[2017-12-31] MEDS: Omeprazole CAP* 20 MG PO SCH (08:52)
[2017-12-31] MEDS: Atorvastatin* 20 MG TAB PO SCH (08:52)
[2017-12-31] MEDS: Pregabalin CAP(*) 100 MG PO SCH (08:52)
[2017-12-31] MEDS: Ascorbic Acid TAB* 500 MG PO SCH (08:54)
[2017-12-31] MEDS: RiFAXimin* 550 MG TAB PO SCH (08:54)
[2017-12-31] MEDS: predniSONE TAB* 20 MG PO SCH (08:54)
[2017-12-31] MEDS: Hydrocortisone 1% CREAM* 30 GM TUBE TOPICAL SCH (08:55)
[2017-12-31] MEDS: Mercaptopurine TAB* 50 MG PO SCH (08:56)
[2017-12-31 10:41] VITALS: BP 99/84
--- NOTE | 2018-01-01 09:26 | DS ---
AMENDED REPORT NOW INCLUDES COSIGNER DESIGNATION - ESIGNED BEFORE ADJUSTMENTS CC: Dr. Shital Harper; Dr. Alicia Salinas; Dr. Gil Epstein * DISCHARGE SUMMARY: DATE OF ADMISSION: 12/23/17 DATE OF DISCHARGE: 12/31/17 PRIMARY CARE PROVIDER: Dr. Shital Harper. OUTPATIENT AUTOMATION AND CONTROLS INSTRUCTOR: Dr. Alicia Salinas. CONSULTING AUTOMATION AND CONTROLS INSTRUCTOR: Dr. Gil Epstein. MY ATTENDING WHILE IN THE HOSPITAL: Dr. Justin Mcleod.* (DICTATED BY RAYMUNDO WEEMS) PRIMARY DISCHARGE DIAGNOSES: 1. Ulcerative colitis. 2. Iron-deficiency anemia. 3. Diabetes mellitus, type 2. SECONDARY DISCHARGE DIAGNOSES: 1. Hyperlipidemia. 2. Hypothyroidism. 3. Anxiety and depression. STUDIES DONE WHILE IN THE HOSPITAL: Brain CT from 12/25/17 read as no intracranial mass or hemorrhages noted. MEDICATIONS AT DISCHARGE: 1. Ambien 10 mg p.o. at bedtime as needed. 2. Zinc 50 mg p.o. daily. 3. Kenalog 1% cream 1 application topical b.i.d. 4. Saccharomyces boulardii 500 mg p.o. daily. 5. Rifaximin 550 mg mg p.o. b.i.d. 6. Zofran 4 mg p.o. q.8 hours as needed. 7. Omeprazole 20 mg p.o. daily. 8. Fish oil 1000 mg p.o. daily. 9. Pamelor 50 mg p.o. at bedtime. 10. Multivitamin 1 tab p.o. daily. 11. Pregabalin 200 mg p.o. b.i.d. 12. Mesalamine 1.2 g p.o. four times a day. 13. Levothyroxine 75 mcg p.o. daily. 14. Hydrocortisone 1 application topical b.i.d. 15. Glimepiride 2 mg p.o. b.i.d. 16. Gabapentin 600 mg p.o. at bedtime. 17. Ferrous gluconate 325 mg p.o. daily. 18. Jublia 1 application daily. 19. Ciclopirox 8% one application daily. 20. Calcium carbonate 600 mg p.o. daily. 21. Biotin 1000 mg p.o. daily. 22. Atorvastatin 20 mg p.o. daily. 23. Ascorbic acid 1000 mg p.o. daily. 24. Ammonium lactate 12% one application daily. 25. Vitamin E 400 units p.o. daily. 26. Amitriptyline 100 mg p.o. at bedtime. 27. Entyvio 300 mg when approved. 28. Tylenol 650 mg p.o. q.4 hours as needed. 29. Maalox 30ml p.o. q.6 hours as needed. 30. Mercaptopurine 50 mg p.o. daily. 31. Metformin 500 mg p.o. daily. 32. Prednisone 8 mg p.o. daily. Medication discontinued at discharge: Humira. HOSPITAL COURSE: This is a brief summary of the patient's presentation. For more details, please see history and physical from RAYMUNDO Cortez, on . In brief, the patient is a 62-year-old female with a past medical history significant for the above. She has been diagnosed approximately 15 years ago with ulcerative colitis and and has had a flare-up with a fluctuating course since July. The patient came into the emergency department on the day of her admission due to worst of her pain, 10/10 in severity, on the left side of her abdomen, which had been getting worse for approximately 3 weeks that was associated with severe diarrhea with occasional blood and mucus. The patient had recently been started on Humira and mesalamine and had continued worsening. The patient had been on 3 months of Humira for 6 total doses. The patient's primary care provider sent her to the emergency department to start her on Remicade. The patient at her time of admission was having approximately 1 bloody bowel movement every hour. The patient had had a flexible sigmoidoscopy in September, which showed inflammation consistent with inflammatory colitis. The patient is a poor historian with regards to her care and the medication she had previously been on. The patient was seen in consultation by Dr. Gil Epstein of Gastroenterology, who recommended high-dose steroids. She was started on 40 mg IV of methylprednisolone t.i.d. She was also continued on Colazal 1.2 g p.o. four times a day. The patient has really had very little change and continued diarrhea with hematochezia. The patient had a fall in the hospital on 12/24/17 with no injury sustained and a negative brain CT as above. The patient had significant hyperglycemia while in the hospital, was found to have a hemoglobin A1c of 8.7; however, the patient had been on steroids since July of this year. The patient also had thrombocytosis with her platelet level up to 573 on admission and a slight anemia of 11.2 without microcytosis. On admission, the patient also had a low sodium of 129, CRP of 26.69. The patient's hemoglobin while she was in the hospital trended down from 11.2 on admission to a low of 8.4 on 12/27/17. The patient had iron studies, which showed severe iron-deficiency anemia without a pattern consistent with anemia of chronic disease having a ferritin of 7. The patient besides persistent hyperglycemia had no other significant laboratory abnormalities. While she was in the hospital, the patient's ESR was initially 72. The patient's CRP was trended down to 1.82 on the day of discharge. The patient had gradual improvement in her abdominal pain and her diarrhea consisting of fewer episodes of more formed stool and less blood. The patient had a colonoscopy on 12/25/17, which showed mckeon colitis, pseudopolyposis with no deep ulcers. Biopsies showed no dysplasia with [id number] active colitis. The patient improved progressively from 12/25/17 to 12/31/17. The patient, for her iron-deficiency anemia, had no response to oral iron, she was unable to say how long she was on oral iron; however, it is deemed unlikely that she would respond to our iron given current inflammation associated with ulcerative colitis and she was given 5 doses of IV iron sucrose while she was in the hospital for a total of 1 g of iron. The patient on 12/30/17 was transitioned from IV methylprednisolone to prednisone 8 mg p.o. daily. The patient was also started on 6-mercaptopurine. The patient was continued on mesalamine throughout her hospitalization. The patient during her time in the hospital worked with Case Management to start the preauthorization process to be started on Entyvio, which was deemed necessary for her continued improvement due to her severe ulcerative colitis flare and nonresponse to Humira. The patient had a negative C. diff test while she was in the hospital. The patient had no significant laboratory abnormalities while in the hospital. The patient was started on insulin glargine at 10 units p.o. daily on the day prior to her discharge and had a blood sugar of 89 on the morning of her discharge. The patient was not continued on insulin outpatient due to her saying she would probably be unable to handle both insulin sliding scale dosing and her current illness and the patient was continued on her glimepiride and metformin was added on for increased control of her blood sugars. The patient was stable and amenable to discharge on 12/31/17. PHYSICAL EXAMINATION ON THE DAY OF DISCHARGE: General: The patient is a 62- year- old female, who appears her stated age and sitting comfortably in bed, in no acute distress. Vital Signs: At the time of discharge, temp of 98.0, pulse rate 93, respiratory rate 18, oxygen saturation 100% on room air, and blood pressure 99/84. HEENT: Head normocephalic and atraumatic. Sclerae anicteric. No conjunctival injection. Nasal mucosa moist. Oral mucosa moist without erythema, discharge, or exudate. Neck: Supple and nontender. No lymphadenopathy. No carotid bruits auscultated. No JVD. Cardiac: Regular rate and rhythm. No clicks, murmurs, gallops, or rubs. Pulses 2+ in the bilateral dorsalis pedis, posterior tibial, and radial areas. No lower extremity edema noted. Respiratory: Clear to auscultation bilaterally. No wheezes, rales, or rhonchi. Good air exchange bilaterally. Abdomen: Soft, tenderness to palpation over the left lower quadrant without rebound or guarding. No hepatosplenomegaly noted. No abdominal bruits auscultated. No hepatojugular reflux. Genitourinary: No suprapubic or CVA tenderness. Skin: Clean, dry, and intact. No rash. Neuro: Cranial nerves II through XII grossly intact. No focal deficits. Alert and oriented x3. Psychiatric: Tremulous and anxious appearing, but otherwise pleasant and cooperative. LABORATORY DATA ON THE DAY OF DISCHARGE: White blood cell count 12.6, hemoglobin 9.7, hematocrit 30, platelet count 358. Sodium 137, potassium 3.7, chloride 101, carbon dioxide 30, anion gap 6, BUN 16, creatinine 0.5, glucose 107, calcium 8.3, magnesium 2.1. CRP 1.82. DISCHARGE PLAN: The patient will be discharged home. The patient will follow up with her primary care provider in 1 week for general medical management. The patient will check her blood sugar every morning. The patient will stop her metformin for any hypoglycemia either by reading or by symptoms. The patient will call her primary care provider for any hyperglycemia above 250 as well for possible adjustments in her medications. The patient will follow up with her outpatient international trade teacher, Dr. Salinas, to assess for continued improvement in her bowel function and possible tapering of her prednisone or increasing the dose of her 6-MP for nonresponse with regards to ulcerative colitis. The patient will continue to work with Jyothi and her outpatient international trade teacher to have Leon approved and follow up in the [facility] for this. The patient should return to the hospital for alarming symptoms such as severely increased blood in her diarrhea, chest pain, shortness of breath, syncope. The patient should have a repeat CBC in 1 week. The patient should have repeat iron studies in 3 months or sooner based on the progression of her ulcerative colitis. The patient should have a bland, consistent carbohydrate diet for which she has been provided materials as well as engage in activities as tolerated. TIME SPENT: Approximately 75 minutes was spent on this discharge, 45 of which was spent [id number] with the patient obtaining history and physical and discussing treatment plan. RAYMUNDO WEEMS [id number]/[facility] #: [id number] MELLISA
== END 2017-12-31 14:10 | disposition home or self-care (01) | DRG 245 ==
LOC: ED 14:12 → MED 18:00
PROVIDERS: ADMIT Hospitalist; ATTEND Internal Medicine
PROC: 0DBM8ZX Excision of Descending Colon, Via Natural or Artificial Opening Endoscopic, Diagnostic (ICD-10-PCS; principal; 2017-12-23)
PROC: 0DBL8ZX Excision of Transverse Colon, Via Natural or Artificial Opening Endoscopic, Diagnostic (ICD-10-PCS; 2017-12-23)
PROC: 0DBN8ZX Excision of Sigmoid Colon, Via Natural or Artificial Opening Endoscopic, Diagnostic (ICD-10-PCS; 2017-12-23)
PROC: 0DBP8ZX Excision of Rectum, Via Natural or Artificial Opening Endoscopic, Diagnostic (ICD-10-PCS; 2017-12-23)
PROC: 0DBF8ZX Excision of Right Large Intestine, Via Natural or Artificial Opening Endoscopic, Diagnostic (ICD-10-PCS; 2017-12-23)
DX: K51.011 Ulcerative (chronic) pancolitis with rectal bleeding (principal); E87.1 Hypo-osmolality and hyponatremia; E78.5 Hyperlipidemia, unspecified; E03.9 Hypothyroidism, unspecified; F32.9 Major depressive disorder, single episode, unspecified; F41.9 Anxiety disorder, unspecified; E86.0 Dehydration; E74.39 Other disorders of intestinal carbohydrate absorption; I10 Essential (primary) hypertension; D50.9 Iron deficiency anemia, unspecified; E11.65 Type 2 diabetes mellitus with hyperglycemia; D47.3 Essential (hemorrhagic) thrombocythemia; E87.6 Hypokalemia; Z79.84 Long term (current) use of oral hypoglycemic drugs; Z90.49 Acquired absence of other specified parts of digestive tract; Z82.49 Family history of ischemic heart disease and other diseases of the circulatory system; Z72.89 Other problems related to lifestyle; Z79.52 Long term (current) use of systemic steroids; Z91.81 History of falling
CPT/HCPCS: 36415; 70450; 80048; 80053; 81003; 81015; 82270; 82607; 82728; 82746; 83036; 83540; 83550; 83690; 83735; 85025; 85652; 86140; 87086; 87493; 88305; 99156; 99157; 99284; A9270-GY; J1644; J1756; J2250; J2270; J2920; J3010; J3480; J7512

== ENCOUNTER 2018-05-18 11:22 | Day surgery (SDC) | payer BC ==
[~2018-05-18 11:22] MED LIST: Acetaminophen TAB* 325 MG PO PRN; Buffered Lidocaine 0.9% SYRIN* 5 ML/SYR SYRINGE INTRADERM ONE
[2018-05-18] MEDS ORDERED: fentaNYL* 50 MCG/ML 2 ML VIAL (100 MCG VIAL) ONE (13:27)
[2018-05-18] MEDS ORDERED: Midazolam* 1 MG/ML 2 ML VIAL (2 MG) ONE (13:27)
[2018-05-18] MEDS ORDERED: Ketorolac 0.5% OPHTH (NF) 0.5 % 5 ML BTL ONE (14:10)
[2018-05-18] MEDS ORDERED: Tropicamide 1% OPTH.SOL* BTL ONE (14:10)
[2018-05-18] MEDS ORDERED: Phenylephrine 2.5% OPTH.SOL* 2 ML BTL ONE (14:10)
[2018-05-18] MEDS ORDERED: Cyclopentolate 1% OPTH.SOL* 2 ML BTL ONE (14:10)
[2018-05-18] MEDS ORDERED: Neomycin/Polymy/Dex OPHTH.OIN* 3.5 GM ONE (14:10)
[2018-05-18] MEDS ORDERED: Lidocaine 1%* 5 ML VIAL ONE (14:10)
[2018-05-18] MEDS ORDERED: Tetracaine 0.5% OPTH.SOL 4 ML* 1 DROP BTL ONE (14:10)
[2018-05-18] MEDS ORDERED: Phenylephr/Ketorolac 1%/0.3% OPH DROP BTL ONE ×2 (14:11→14:14)
[2018-05-18 14:20] VITALS: BP 121/75
--- NOTE | 2018-05-19 08:45 | OP ---
OPERATIVE REPORT: DATE OF OPERATION: 05/18/18 DATE OF : 51 SURGEON: Gil Lyons MD DYNAMICS AX TECHNICAL ARCHITECT: None. ANESTHESIA: Topical with intravenous sedation. PRE-OP DIAGNOSIS: Cataract with small pupil, left eye. POST-OP DIAGNOSIS: Cataract with small pupil, left eye. OPERATIVE PROCEDURE: Phacoemulsification and cataract extraction with posterior chamber intraocular lens implant, left eye. COMPLICATIONS: None. BLOOD LOSS: None. DESCRIPTION OF PROCEDURE: The patient was brought to the operating room and received intravenous sed ation. A drop of tetracaine was placed in her left eye. The patient was prepped and draped in the [facility] sterile fashion for ophthalmic surgery and attention was directed to the left eye where a speculu m was placed. It was noted that despite appropriate preoperative eyedrops, her pupil measured approx imately 3.5 mm in diameter. A paracentesis was created at the 5 o'clock position and 0.1 cc of 1% pr eservative-free lidocaine was injected into the anterior chamber followed by DisCoVisc. The eye was digitally stabilized while a 2.75-mm keratome was used to create a triplanar clear corneal incision a t the 3 o'clock position. A Malyugin ring was introduced into the eye and used to expand the pupil. A continuous curvilinear capsulorrhexis was created with a cystotome and Utrata forceps. BSS on can nula was used to hydrodissect the lens from the capsule. The lens was fairly dense and the anterior chamber was fairly shallow. Phacoemulsification was performed in a twxijz-xnm-axmojxt technique to cr eate 4 fragments, which were removed safely. Residual cortical material was removed with irrigation and aspiration. DisCoVisc was used to inflate the capsular bag. An AU00T0 26.5 diopter lens was fol ded and inserted into the capsular bag. DisCoVisc was removed from posterior to the lens. Supplemen katerina DisCoVisc was placed in the anterior chamber. The Malyugin ring was atraumatically removed from the eye. Remaining DisCoVisc was removed from the eye. BSS on the cannula was used to hydrate the co rneal stroma and seal the wound. At the end of the case, the pupil was round and small. The eye pre ssure appeared normal. The wound was watertight and the lens was centered and stable. The speculum was removed and topical Maxitrol ointment was placed on the surface of the eye. The eye was closed, patched, and shielded, and the patient was sent to the recovery room in stable condition with postope rative instructions and followup appointment given. [id number]/[facility] #: [id number]
== END 2018-05-18 14:20 | disposition home or self-care (01) ==
LOC: OREAST 11:22
PROVIDERS: ATTEND Ophthalmology
DX: H25.12 Age-related nuclear cataract, left eye (principal); H21.562 Pupillary abnormality, left eye; I10 Essential (primary) hypertension; M79.7 Fibromyalgia; R73.03 Prediabetes; E78.5 Hyperlipidemia, unspecified; E03.9 Hypothyroidism, unspecified
CPT/HCPCS: A9270-GY; C9447; J2250; J3010; V2632

== ENCOUNTER 2018-05-25 08:16 | Day surgery (SDC) | payer BC ==
[2018-05-25] MEDS ORDERED: Insulin LISPRO* 1 UNITS UNIT SUBCUT ONE (09:10)
[2018-05-25] MEDS ORDERED: fentaNYL* 50 MCG/ML 2 ML VIAL (100 MCG VIAL) ONE (09:28)
[2018-05-25] MEDS ORDERED: Midazolam* 1 MG/ML 2 ML VIAL (2 MG) ONE ×2 (09:29→10:06)
[2018-05-25 10:36] VITALS: BP 107/63
[2018-05-25] MEDS ORDERED: Cyclopentolate 1% OPTH.SOL* 2 ML BTL ONE (13:52)
[2018-05-25] MEDS ORDERED: Lidocaine 1%* 5 ML VIAL ONE (13:52)
[2018-05-25] MEDS ORDERED: Ketorolac 0.5% OPHTH (NF) 0.5 % 5 ML BTL ONE (13:53)
[2018-05-25] MEDS ORDERED: Tetracaine 0.5% OPTH.SOL 4 ML* 1 DROP BTL ONE (13:53)
[2018-05-25] MEDS ORDERED: Tropicamide 1% OPTH.SOL* BTL ONE (13:53)
[2018-05-25] MEDS ORDERED: Neomycin/Polymy/Dex OPHTH.OIN* 3.5 GM ONE (13:53)
[2018-05-25] MEDS ORDERED: Phenylephrine 2.5% OPTH.SOL* 2 ML BTL ONE (13:53)
--- NOTE | 2018-05-26 03:31 | OP ---
DATE OF OPERATION: 05/25/18 [facility] DATE OF : 51 SURGEON: Gil Lyons MD CUSTOMER FIELD REPRESENTATIVE: None. ANESTHESIA: Topical with intravenous sedation. PRE-OP DIAGNOSIS: Cataract with small pupil, right eye. POST-OP DIAGNOSIS: Cataract with small pupil, right eye. OPERATIVE PROCEDURE: Phacoemulsification and cataract extraction with posterior chamber intraocular lens implant, right eye. COMPLICATIONS: None. ESTIMATED BLOOD LOSS: None. DESCRIPTION OF PROCEDURE: The patient was brought to the operating room and given intravenous sedation. A drop of tetracaine was placed in her right eye. She was prepped and draped in the usual sterile fashion for ophthalmic surgery and attention was directed to the right eye where a speculum was placed. It was noted despite appropriate preoperative dilating drops, her pupil measured approximately 3.5 mm. A paracentesis was created at the 11 o'clock position and 0.1 cc of 1% preservative free lidocaine was injected into the anterior chamber followed by DisCoVisc. The eye was digitally stabilized while a 2.75-mm keratome was used to create a triplanar clear corneal incision at the 9 o'clock position. A Malyugin ring was introduced into the eye and used to open the pupil. A continuous curvilinear capsulorrhexis was created with a cystotome and Utrata forceps measuring approximately 4.5 mm. BSS on a cannula was used to hydrodissect the lens from the capsule. Phacoemulsification was performed in a pxmfjv-yeq-qvabttt technique to create 4 fragments, which were removed. Residual cortical material was removed with irrigation and aspiration. DisCoVisc was used to inflate the capsular bag. An AU00T0 30.0 diopter lens was inserted into the capsular bag. DisCoVisc was removed from posterior to the lens. The Malyugin ring was removed from the eye. The remainder of the DisCoVisc was removed. BSS on a cannula was used to hydrate the corneal stroma and seal the wound. At the end of the case the pupil was round, the lens was centered and stable. The eye pressure appeared normal and the wound was watertight. The speculum was removed and topical Maxitrol ointment was placed on the surface of the eye. The eye was closed, patched, and shielded, and the patient was sent to recovery room in stable condition with postop instructions and follow-up appointment given. [id number]/[facility] #: [id number] MELLISA
== END 2018-05-25 10:49 | disposition home or self-care (01) ==
LOC: OREAST 08:16
PROVIDERS: ATTEND Ophthalmology
DX: H25.811 Combined forms of age-related cataract, right eye (principal); H21.561 Pupillary abnormality, right eye; R73.03 Prediabetes; Z87.891 Personal history of nicotine dependence; K51.90 Ulcerative colitis, unspecified, without complications; F41.8 Other specified anxiety disorders; Z79.52 Long term (current) use of systemic steroids
CPT/HCPCS: A9270-GY; J2250; J3010; V2632

== ENCOUNTER 2018-08-25 07:13 | Day surgery (SDC) | payer BC ==
[~2018-08-25 07:13] MED LIST changes: -Acetaminophen TAB* 325 MG PO PRN; -Buffered Lidocaine 0.9% SYRIN* 5 ML/SYR SYRINGE INTRADERM ONE; +Buffered Lidocaine 1% SYRIN* 1 ML/SYRINGE INTRADERM ONE; +Famotidine IV* 10 MG/ML 2 ML (20 mg) IV ONE; +Lactated Ringers 1000 ML Bag* 1,000 ML IV SCH; +Metoclopramide IV* 5 MG/ML 2 ML VIAL IV SLOW PU ONE
[2018-08-25] MEDS ORDERED: Metoclopramide IV* 5 MG/ML 2 ML VIAL ONE (07:55)
[2018-08-25] MEDS ORDERED: Famotidine IV* 10 MG/ML 2 ML (20 mg) ONE (07:55)
[2018-08-25] MEDS ORDERED: ceFAZolin 2 GM PREMIX in ORs 2 GM/50 ML BAG IVPB ONE (07:55)
[2018-08-25] MEDS ORDERED: Midazolam* 1 MG/ML 2 ML VIAL (2 MG) ONE (07:58)
[2018-08-25] MEDS ORDERED: Propofol* 10 MG/ML 20 ML BTL ONE (07:58)
[2018-08-25] MEDS ORDERED: fentaNYL* 50 MCG/ML 2 ML VIAL (100 MCG VIAL) ONE (07:58)
[2018-08-25] MEDS ORDERED: Lidocaine 2% PF * 5 ML VIAL ONE (07:58)
[2018-08-25] MEDS ORDERED: EPINEPHRINE 1 MG/ML 1 ML VIAL ONE (08:59)
[2018-08-25] MEDS ORDERED: Bupivacaine 0.5% W/EPI SDV* 30 ML VIAL ONE (08:59)
[2018-08-25] MEDS ORDERED: ROPIVACAINE 5 MG/ML 30 ML BTL (0.5%) ONE (09:12)
[2018-08-25] MEDS ORDERED: Lidocaine 1%* 5 ML VIAL ONE (09:12)
[2018-08-25] MEDS ORDERED: Rocuronium* 10 MG/ML VIAL ONE (09:35)
[2018-08-25] MEDS ORDERED: EPHEDrine (Pressors)* 50 MG/ML VIAL ONE (10:06)
[2018-08-25] MEDS ORDERED: VASOPRESSIN 20 UNITS/ML 1 ML VIAL ONE (10:16)
[2018-08-25] MEDS ORDERED: Phenylephrine IV* 40 MCG/ML 10 ML SYRINGE ONE (10:23)
[2018-08-25] MEDS ORDERED: Naloxone* 0.4 MG/ML 1 ML VIAL IV PRN (10:47)
[2018-08-25] MEDS ORDERED: Acetaminophen TAB* 325 MG PO PRN (10:47)
[2018-08-25] MEDS ORDERED: fentaNYL* 50 MCG/ML 2 ML VIAL (100 MCG VIAL) IV PRN (10:47)
[2018-08-25] MEDS ORDERED: oxyCODONE/Acetamin 5/325 MG* TAB PO PRN (10:47)
[2018-08-25] MEDS ORDERED: DiMENhydriNATE IV* 50 MG/ML VIAL IV PUSH PRN (10:47)
[2018-08-25] MEDS ORDERED: Ketorolac INJ* 30 MG/ML 1 ML VIAL IV PRN (10:47)
[2018-08-25] MEDS ORDERED: Morphine VIAL* 4 MG/ML VIAL (1 ml vial) IV PRN (10:47)
[2018-08-25 13:32] VITALS: BP 132/78
--- NOTE | 2018-08-26 23:12 | OP ---
DATE OF OPERATION: 08/25/18 - [facility] DATE OF : 51 SURGEON: Jose Garcia MD HIGH SCHOOL FOREIGN LANGUAGE TEACHER: RAYMUNDO Perez. A physician assistant art director was required for the length of the procedure for assistance with positioning, shoulder instrumentation, and closure. ANESTHESIOLOGIST: Dr. Sandor Levin. PRE-OP DIAGNOSES: 1. Right shoulder rotator cuff tendon tear, supraspinatus, full thickness. 2. Right shoulder subacromial impingement and bursitis. 3. Right shoulder AC joint osteoarthritis. POST-OP DIAGNOSES: 1. Right shoulder rotator cuff tendon tear, supraspinatus, full thickness. 2. Right shoulder subacromial impingement and bursitis. 3. Right shoulder AC joint osteoarthritis. OPERATIVE PROCEDURE: 1. Right shoulder arthroscopic rotator cuff tendon repair, supraspinatus, double row, 3 anchors. 2. Right shoulder arthroscopic subacromial decompression. 3. Right shoulder arthroscopic distal clavicle resection. ANTIBIOTICS: Ancef 2 g IV. IV FLUIDS: 1800 cc crystalloid. OLYQ-CY-SBJI TIME: 85 minutes. ARTHROSCOPY FLUID UTILIZED: Eight bags, each with 3 L for a total of 24 L. SPECIMEN: None. IMPLANTS: Mitek Healix 5.5 mm anchors x2. I used two sutures from each. I also used a Mitek Healix 5.5 mm knotless anchor. COMPLICATIONS: None. ESTIMATED BLOOD LOSS: Minimal. INDICATIONS FOR PROCEDURE: The patient is a 62-year-old woman, right hand dominant, retired, who injured herself on 06/15/18 when she tripped and fell. The patient presented to clinic with pain and weakness of the right shoulder. MRI showed a full-thickness tear in the anterior supraspinatus. Minimal anterior supraspinatus retraction, AC joint and lateral acromial spurring. Discussed risks and potential complications of surgery. The patient opted for surgery. DESCRIPTION OF PROCEDURE: The patient signed a written consent in the preoperative holding. Operative extremity marked in preoperative holding. Anesthesiologist Dr. Levin did a regional interscalene block in preoperative holding. The patient was taken back to the operating room and placed supine on the operating room table. Sedated and intubated. The patient was turned into the lateral decubitus position. Right shoulder up. Axillary roll. Bony prominences padded. A vasquez bag hardened. 15 pounds of longitudinal traction in right shoulder and the appropriate amount of forward flexion and abduction. Right shoulder prepped and draped. Surgical time-out performed. 30 cc of normal saline infused into the glenohumeral joint from posterior. Posterior glenohumeral joint portal established using a standard technique. Diagnostic arthroscopy commenced. The patient had some frayed posterior labrum. The patient had some fraying in the rotator interval. An anterior glenohumeral joint portal was established under direct visualization. No significant articular cartilage injury. No loose body. Some rotator cuff interval tissue was shaved. No subscapularis tendon tear. There was a clear full- thickness injury to the supraspinatus tendon. There was some redness about the superior labrum but no unstable superior labral tear whatsoever. Superior labrum lifted up, perhaps a millimeter. Biceps tendon itself did not look tendonotic or torn. Therefore, I decided not to treat the biceps tendon. Exited the glenohumeral joint and entered the supraacromial space from anterior and posterior. Established a lateral subacromial portal under direct visualization and later a posterolateral portal under direct visualization. Easily visible was the full-thickness rotator cuff tendon tear at the supraspinatus. This tendon tear ended up being the full width of the supraspinatus rather than just the anterior half which had appeared to be based on preoperative MRI imaging. I debrided bursitic tissue with an arthroscopic shaver and debrided the undersurface of the acromion with a vapor device. Visualized well the rotator cuff tendon. It was clearly a crescent-shaped tear , full width supraspinatus, with some minimal retraction. Rotator cuff grasper showed that the tendon easily reached over to the lateral aspect of the footprint with a tension-free pull. I went about performing subacromial decompression. Used an arthroscopic bur to flatten out the undersurface of the acromion. Next, directed my attention to the rotator cuff again. I used an arthroscopic shaver to debride scar tissue at the end of the rotator cuff showing clearly defined borders. I next debrided the footprint of the humeral head. I did so with a shaver, vapor. I then debrided the bone freshening it up with the bur. I had plastic cannulas anterior and lateral. I placed two anchors through superolateral poke holes in the medial aspect of the footprint. I used a [employer] passer to pass horizontal mattress stitches into the rotator cuff tendon, two from the anterior anchor and two from the posterior anchor. I tied these four horizontal mattress knots. It brought the tendon nicely to bone. I next placed a knotless anchor in the lateral footprint. I placed this anterior as opposed to mid point anterior to posterior to avoid the cyst visible on preoperative imaging. I used four sutures from the medial row in this knotless anchor laterally. There was perhaps a millimeter or so of tissue about the anterior most corner of the supraspinatus that I decided to capture with a simple stitch from the knotless lateral anchor. I viewed the repair through a variety of portals lateral, posterolateral, and posterior and it appeared like an excellent repair. I was happy with it. No dog ears. Excellent apposition to bone. I next moved to the AC joint. I debrided inflamed tissue with a vapor cautery device and then removed 8 mm of the distal end of the clavicle with an arthroscopic bur. Removal of instruments and fluid. Closure of skin stab incisions with figure-of -eight and 12 stitches using nylon 3.0 suture. Xeroform, 4x4s, abdominal pads, foam tape. Sling and abduction pillow. The patient was awakened, extubated, and transferred to the PACU. DISPOSITION: The patient was provided with wound care instructions. Discharged home when medically stable. The patient will receive Percocet as needed for pain control. She will start physical therapy in the next week or so. She will follow up with me in the office 10 to 14 days postoperatively. [id number]/[facility] #: [id number] MELLISA
== END 2018-08-25 13:47 | disposition home or self-care (01) ==
LOC: OR 07:13
PROVIDERS: ATTEND Orthopaedic Surgery
DX: S46.011A Strain of muscle(s) and tendon(s) of the rotator cuff of right shoulder, initial encounter (principal); M75.41 Impingement syndrome of right shoulder; M75.51 Bursitis of right shoulder; M19.011 Primary osteoarthritis, right shoulder; W01.0XXA Fall on same level from slipping, tripping and stumbling without subsequent striking against object, initial encounter; Y92.002 Bathroom of unspecified non-institutional (private) residence as the place of occurrence of the external cause; E11.9 Type 2 diabetes mellitus without complications; Z79.84 Long term (current) use of oral hypoglycemic drugs; Z87.891 Personal history of nicotine dependence; E78.5 Hyperlipidemia, unspecified; E03.9 Hypothyroidism, unspecified; F41.8 Other specified anxiety disorders; K51.90 Ulcerative colitis, unspecified, without complications; G89.18 Other acute postprocedural pain
CPT/HCPCS: J0690; J2250; J2704; J2765; J2795; J3010